=== PATIENT | male | born 1945 | race Caucasian/White ===

== ENCOUNTER → 2017-03-17 | Outpatient (REF) | payer BC ==
[~2017-03-17] MED LIST: ASPI325T PO; ATEN25TA PO; FISHCAP PO; LANO250T15 PO; LIPI10TA PO; MULTCAP PO; TYLE325T5 PO; VITA-182 PO; VITA500C24 PO
== END ==
LOC: M LABDRAW1 13:47
PROVIDERS: ATTEND Nurse Practitioner Family
DX: E29.1 Testicular hypofunction (principal)

== ENCOUNTER → 2017-03-19 | Outpatient (REF) | payer BC | LOC: M LAB REF 09:37 → M LABDRAW1 09:37 | PROVIDERS: ATTEND Urology | DX: E29.1 Testicular hypofunction (principal) ==

== ENCOUNTER → 2017-08-19 | Outpatient (REF) | payer BC | LOC: M LABDRAW1 09:54 | DX: N52.01 Erectile dysfunction due to arterial insufficiency (principal); E34.9 Endocrine disorder, unspecified | CPT/HCPCS: 84403 ==

== ENCOUNTER → 2017-08-21 | Outpatient (REF) | payer BC | LOC: M LABDRAW1 11:16 | DX: N52.01 Erectile dysfunction due to arterial insufficiency (principal) | CPT/HCPCS: 84403 ==

== ENCOUNTER → 2017-10-13 | Outpatient (REF) | payer BC ==
[2017-10-13 12:56] LABS: APPEARANCE, URINE CLEAR (CLEAR); BACTERIA, URINE AUTO NEGATIVE (NEGATIVE); BILIRUBIN, URINE AUTO NEGATIVE (NEGATIVE); BLOOD, URINE BLOOD NEGATIVE (NEGATIVE); COLOR, URINE AMBER (YELLOW); GLUCOSE, URINE (UA) AUTO NEGATIVE (NEGATIVE); KETONE, URINE AUTO TRACE mg/dL (NEGATIVE); LEUKOCYTE ESTERASE, URINE AUTO NEGATIVE (NEGATIVE); MUCUS, URINE SMALL (NEGATIVE); NITRITE, URINE AUTO NEGATIVE (NEGATIVE); PROTEIN, URINE AUTO NEGATIVE (NEGATIVE); RBC, URINE AUTO 1 /HPF (0-3); SPECIFIC GRAVITY URINE AUTO 1.024 (1.002-1.035); SQUAMOUS EPITHELIAL CELL UR AU 0 /HPF (0-6); WBC, URINE AUTO 1 /HPF (0-3)
[2017-10-13 12:57] LABS: BASO # 0.1 10^3/uL (0.0-0.2); BASO % 0.6 % (0.0-1.0); EOS # 0.2 10^3/uL (0.0-0.50); HEMOGLOBIN 16.4 g/dl (14.0-18.0); IMMATURE GRANULOCYTE % 1.2 % (0-3.0); LYMPH # 1.8 10^3/uL (1.5-4.5); MEAN CORPUSCULAR HEMOGLOBIN 28.9 pg (27.0-33.0); MEAN CORPUSCULAR HGB CONC 32.8 g/dl (32.0-36.5); MONO # 0.8 10^3/uL (0.0-0.8); MONO % 7.8 % (0.0-5.0); NEUTROPHILS # 7.5 10^3/uL (1.8-7.7); NEUTROPHILS % 71.4 % (36.0-66.0); PLATELET COUNT, AUTOMATED 331 10^3/uL (150-450); RED BLOOD COUNT 5.68 10^6/uL (4.30-6.10); RED CELL DISTRIBUTION WIDTH 15.3 % (11.5-14.5); WHITE BLOOD COUNT 10.5 10^3/uL (4.0-10.0)
[2017-10-13 13:01] LABS: PROTHROMBIN TIME 13.3 SECONDS (12.4-14.5)
[2017-10-13 13:02] LABS: PARTIAL THROMBOPLASTIN TIME 35.4 SECONDS (26.8-37.9)
[2017-10-13 13:10] LABS: TOTAL 25(OH) VITAMIN D 41.8 NG/ML (30.0-100.0)
[2017-10-13 13:17] LABS: ALBUMIN 3.6 GM/DL (3.2-5.2); ALBUMIN/GLOBULIN RATIO 1.03 (1.00-1.93); ALKALINE PHOSPHATASE 79 U/L (45-117); ALT/SGPT 50 U/L (12-78); ANION GAP 8 MEQ/L (8-16); AST/SGOT 18 U/L (7-37); BILIRUBIN,TOTAL 0.7 MG/DL (0.2-1.0); BLOOD UREA NITROGEN 17 MG/DL (7-18); C REACTIVE PROTEIN QUANTITATIV 2.38 MG/DL (0.00-0.30); CALCIUM LEVEL 9.2 MG/DL (8.8-10.2); CARBON DIOXIDE LEVEL 27 MEQ/L (21-32); CHLORIDE LEVEL 105 MEQ/L (98-107); CREATININE FOR GFR 0.81 MG/DL (0.70-1.30); GLOMERULAR FILTRATION RATE > 60.0 (>42); GLUCOSE, FASTING 107 MG/DL (70-100); IRON (FE) 98 UG/DL (65-175); POTASSIUM SERUM 4.2 MEQ/L (3.5-5.1); RHEUMATOID FACTOR QUANT < 10.0 IU/ML (0-15.0); SODIUM LEVEL 140 MEQ/L (136-145); TOTAL IRON BINDING CAPACITY 316 UG/DL (250-450); TOTAL PROTEIN 7.1 GM/DL (6.4-8.2)
[2017-10-13 13:49] LABS: ERYTHROCYTE SEDIMENTATION RATE 17 mm/hr (0-20)
[2017-10-14 10:41] LABS: HEPATITIS B SURFACE ANTIGEN NEGATIVE (NEGATIVE)
[2017-10-14 10:51] LABS: HEPATITIS C VIRUS ABY INDEX 0.1 INDEX (<0.8)
[2017-10-16 00:06] LABS: ANCA-ATYPICAL <1:20 titer (Neg:<1:20); ANTINUCLEAR ANTIBODIES DIRECT Negative (Negative); CYTOPLASMIC NEUTROP AB ANCA-C <1:20 titer (Neg:<1:20); Lyme Disease IgG/IgM Antibodie <0.91 ISR (0.00-0.90); Lyme Disease IgM Ab Quantitati <0.80 index (0.00-0.79); PERINUCLEAR AB ANCA-P <1:20 titer (Neg:<1:20); SJOGREN'S ANTI SS-A <0.2 AI (0.0-0.9); SJOGREN'S ANTI SS-B <0.2 AI (0.0-0.9)
== END ==
LOC: M LABDRAW1 10:06
DX: M35.9 Systemic involvement of connective tissue, unspecified (principal); Z79.899 Other long term (current) drug therapy; E55.9 Vitamin D deficiency, unspecified; E83.110 Hereditary hemochromatosis
CPT/HCPCS: 83550

== ENCOUNTER 2017-10-25 15:39 | Emergency (ER) | payer BC ==
[2017-10-25] MEDS: NS 1,000 ML IV (16:14)
[2017-10-25] MEDS ORDERED: DIGOXIN INJ 0.5 MG/2 ML AMP (J1160) IV (16:14)
[2017-10-25] MEDS: METOPROLOL 5 MG/5 ML VIAL IV ×4 (16:15→16:51)
[2017-10-25 16:20] LABS: BASO # 0.1 10^3/uL (0.0-0.2); BASO % 0.7 % (0.0-1.0); EOS # 0.1 10^3/uL (0.0-0.50); EOS % 0.9 % (0.0-3.0); HEMATOCRIT 53.5 % (42.0-52.0); HEMOGLOBIN 17.9 g/dl (14.0-18.0); IMMATURE GRANULOCYTE % 1.1 % (0-3.0); LYMPH # 2.3 10^3/uL (1.5-4.5); LYMPH % 20.3 % (24.0-44.0); MEAN CORPUSCULAR HEMOGLOBIN 29.6 pg (27.0-33.0); MEAN CORPUSCULAR HGB CONC 33.5 g/dl (32.0-36.5); MEAN CORPUSCULAR VOLUME 88.6 fl (80.0-96.0); MONO # 0.9 10^3/uL (0.0-0.8); MONO % 7.9 % (0.0-5.0); NEUTROPHILS # 7.9 10^3/uL (1.8-7.7); NEUTROPHILS % 69.1 % (36.0-66.0); PLATELET COUNT, AUTOMATED 211 10^3/uL (150-450); RED BLOOD COUNT 6.04 10^6/uL (4.30-6.10); WHITE BLOOD COUNT 11.5 10^3/uL (4.0-10.0)
[2017-10-25 16:24] LABS: INR 0.92; PROTHROMBIN TIME 12.4 SECONDS (12.4-14.5)
[2017-10-25 16:33] LABS: ANION GAP 7 MEQ/L (8-16); BLOOD UREA NITROGEN 18 MG/DL (7-18); CARBON DIOXIDE LEVEL 30 MEQ/L (21-32); CHLORIDE LEVEL 104 MEQ/L (98-107); CPK CREATINE PHOSPHOKINASE 146 U/L (39-308); CREATININE FOR GFR 1.01 MG/DL (0.70-1.30); GLOMERULAR FILTRATION RATE > 60.0 (>42); GLUCOSE, FASTING 135 MG/DL (70-100); POTASSIUM SERUM 3.5 MEQ/L (3.5-5.1); SODIUM LEVEL 141 MEQ/L (136-145); TROPONIN I < 0.02 NG/ML (< 0.10)
[2017-10-25 16:39] LABS: CK-MB VALUE MASS 2.5 NG/ML (0.0-3.6); MB/CK RELATIVE INDEX 1.71 (< OR =4)
[2017-10-25] MEDS: DIGOXIN INJ 0.5 MG/2 ML AMP (J1160) IV (16:52)
== END 2017-10-25 18:16 | disposition home or self-care (01) ==
LOC: M ED 15:39
DX: I48.91 Unspecified atrial fibrillation (principal); R00.0 Tachycardia, unspecified; I48.92 Unspecified atrial flutter; I51.9 Heart disease, unspecified; I10 Essential (primary) hypertension; E78.5 Hyperlipidemia, unspecified; Z87.891 Personal history of nicotine dependence; Z82.49 Family history of ischemic heart disease and other diseases of the circulatory system; Z79.82 Long term (current) use of aspirin; Z79.899 Other long term (current) drug therapy
CPT/HCPCS: J1160

== ENCOUNTER → 2017-10-26 | Outpatient (REF) | payer BC ==
[2017-10-28 10:15] LABS: QUANTIFERON GOLD TB Negative (Negative); TB Test (QFT) Antigen 0.01 IU/mL (.); TB Test (QFT) Mitogen 6.19 IU/mL (.); TB Test (QFT) Nil 0.01 IU/mL (.)
== END ==
LOC: M LABNEURO 13:01
DX: L40.59 Other psoriatic arthropathy (principal); K76.0 Fatty (change of) liver, not elsewhere classified; Z79.899 Other long term (current) drug therapy
CPT/HCPCS: 36415

== ENCOUNTER 2017-10-29 00:28 | Emergency (ER) | payer BC ==
[2017-10-29] MEDS: METOPROLOL 5 MG/5 ML VIAL IV ×3 (00:59→01:30)
[2017-10-29] MEDS: METOPROLOL TART 25 MG TABLET PO (00:59)
[2017-10-29 01:01] LABS: BASO # 0.1 10^3/uL (0.0-0.2); BASO % 0.6 % (0.0-1.0); EOS # 0.3 10^3/uL (0.0-0.50); EOS % 2.1 % (0.0-3.0); HEMOGLOBIN 17.4 g/dl (14.0-18.0); IMMATURE GRANULOCYTE % 0.5 % (0-3.0); LYMPH # 2.1 10^3/uL (1.5-4.5); LYMPH % 16.9 % (24.0-44.0); MEAN CORPUSCULAR HEMOGLOBIN 29.4 pg (27.0-33.0); MEAN CORPUSCULAR HGB CONC 34.1 g/dl (32.0-36.5); MEAN CORPUSCULAR VOLUME 86.3 fl (80.0-96.0); MONO # 1.4 10^3/uL (0.0-0.8); MONO % 10.8 % (0.0-5.0); NEUTROPHILS # 8.8 10^3/uL (1.8-7.7); NEUTROPHILS % 69.1 % (36.0-66.0); PLATELET COUNT, AUTOMATED 184 10^3/uL (150-450); RED BLOOD COUNT 5.91 10^6/uL (4.30-6.10); RED CELL DISTRIBUTION WIDTH 15.9 % (11.5-14.5); WHITE BLOOD COUNT 12.7 10^3/uL (4.0-10.0)
[2017-10-29 01:44] LABS: ANION GAP 12 MEQ/L (8-16); BLOOD UREA NITROGEN 20 MG/DL (7-18); CARBON DIOXIDE LEVEL 23 MEQ/L (21-32); CHLORIDE LEVEL 105 MEQ/L (98-107); CK-MB VALUE MASS 1.3 NG/ML (0.0-3.6); CPK CREATINE PHOSPHOKINASE 103 U/L (39-308); CREATININE FOR GFR 0.76 MG/DL (0.70-1.30); DIGOXIN LEVEL 0.7 NG/ML (0.5-2.0); FREE T4 0.96 NG/DL (0.76-1.46); GLOMERULAR FILTRATION RATE > 60.0 (>42); GLUCOSE, FASTING 109 MG/DL (70-100); MB/CK RELATIVE INDEX 1.26 (< OR =4); POTASSIUM SERUM 3.7 MEQ/L (3.5-5.1); SODIUM LEVEL 140 MEQ/L (136-145); TROPONIN I < 0.02 NG/ML (< 0.10)
[2017-10-29 05:11] LABS: CK-MB VALUE MASS 1.8 NG/ML (0.0-3.6); CPK CREATINE PHOSPHOKINASE 102 U/L (39-308); MB/CK RELATIVE INDEX 1.76 (< OR =4); TROPONIN I < 0.02 NG/ML (< 0.10)
== END 2017-10-29 06:25 | disposition home or self-care (01) ==
LOC: M ED 00:28
DX: I48.91 Unspecified atrial fibrillation (principal); N40.0 Benign prostatic hyperplasia without lower urinary tract symptoms; Z79.52 Long term (current) use of systemic steroids; Z79.899 Other long term (current) drug therapy; Z79.82 Long term (current) use of aspirin
CPT/HCPCS: 93005

== ENCOUNTER 2018-01-17 00:54 | Inpatient (IN) | payer MEDICARE, BC ==
[2018-01-17 01:23] LABS: BASO # 0.1 10^3/uL (0.0-0.2); BASO % 0.7 % (0.0-1.0); EOS # 0.2 10^3/uL (0.0-0.50); EOS % 1.7 % (0.0-3.0); HEMATOCRIT 46.4 % (42.0-52.0); HEMOGLOBIN 15.7 g/dl (13.5-17.5); IMMATURE GRANULOCYTE % 0.5 % (0-3.0); LYMPH # 2.5 10^3/uL (1.5-4.5); LYMPH % 22.6 % (24.0-44.0); MEAN CORPUSCULAR HEMOGLOBIN 28.7 pg (27.0-33.0); MEAN CORPUSCULAR HGB CONC 33.8 g/dl (32.0-36.5); MEAN CORPUSCULAR VOLUME 84.8 fl (80.0-96.0); MONO # 1.1 10^3/uL (0.0-0.8); MONO % 9.8 % (0.0-5.0); NEUTROPHILS # 7.2 10^3/uL (1.8-7.7); NEUTROPHILS % 64.7 % (36.0-66.0); PLATELET COUNT, AUTOMATED 315 10^3/uL (150-450); RED BLOOD COUNT 5.47 10^6/uL (4.30-6.10); RED CELL DISTRIBUTION WIDTH 13.2 % (11.5-14.5); WHITE BLOOD COUNT 11.2 10^3/uL (4.0-10.0)
[2018-01-17] MEDS: METOPROLOL 5 MG/5 ML VIAL IV ×4 (01:48→02:01)
[2018-01-17 01:50] LABS: ANION GAP 7 MEQ/L (8-16); BLOOD UREA NITROGEN 15 MG/DL (7-18); CALCIUM LEVEL 8.5 MG/DL (8.8-10.2); CARBON DIOXIDE LEVEL 26 MEQ/L (21-32); CHLORIDE LEVEL 106 MEQ/L (98-107); CK-MB VALUE MASS 1.1 NG/ML (<3.6); CPK CREATINE PHOSPHOKINASE 102 U/L (39-308); CREATININE FOR GFR 0.83 MG/DL (0.70-1.30); GLOMERULAR FILTRATION RATE > 60.0 (>42); GLUCOSE, FASTING 118 MG/DL (70-100); MB/CK RELATIVE INDEX 1.07 (< OR =4); POTASSIUM SERUM 3.9 MEQ/L (3.5-5.1); SODIUM LEVEL 139 MEQ/L (136-145); TROPONIN I < 0.02 NG/ML (< 0.10)
[2018-01-17 02:16] LABS: DIGOXIN LEVEL 0.8 NG/ML (0.5-2.0); MAGNESIUM LEVEL 2.2 MG/DL (1.8-2.4)
[2018-01-17] MEDS: FLECAINIDE 50MG TABLET PO ×3 (03:29→21:07)
[2018-01-17 07:12] LABS: CK-MB VALUE MASS < 1.0 NG/ML (<3.6); CPK CREATINE PHOSPHOKINASE 96 U/L (39-308); MB/CK RELATIVE INDEX 1.04 (< OR =4); TROPONIN I < 0.02 NG/ML (< 0.10)
[2018-01-17] MEDS: CARVedilol 12.5 MG TAB PO ×3 (07:15→21:08)
[2018-01-17] MEDS: APIXABAN 5 MG TAB (ELIQUIS) PO ×2 (07:15→21:07)
[2018-01-17] MEDS: DIGOXIN 0.25 MG TAB PO (07:15)
[2018-01-17] MEDS ORDERED: BISACODYL 5 MG TAB PO (12:00)
[2018-01-17] MEDS: MULTIVITAMINS/MINERALS THERAP 1 TAB PO (13:13)
[2018-01-17] MEDS: FOLIC ACID 1 MG TAB PO (13:13)
[2018-01-17] MEDS: VITAMIN D 1,000 INTERNATIONAL UNITS TABLET PO (13:13)
[2018-01-17] MEDS: ASCORBIC ACID 500 MG TAB PO (13:14)
[2018-01-17] MEDS: SPIRONOLACTONE 12.5MG PER 1/2 TABLET PO (14:25)
[2018-01-17] MEDS ORDERED: AMIODARONE 150MG/3ML INJ (J0282) IVP (18:12)
[2018-01-17] MEDS: AMIODARONE HCL 150 MG in APPROPRIATE DILUENT 1 EA IV (19:53)
[2018-01-17] MEDS ORDERED: FLECAINIDE 50MG TABLET PO (21:00)
[2018-01-17] MEDS ORDERED: CARVedilol 12.5 MG TAB PO (21:00)
[2018-01-17] MEDS: ATORVASTATIN 20 MG TAB PO (21:08)
[2018-01-18 04:33] LABS: HEMATOCRIT 47.6 % (42.0-52.0); MEAN CORPUSCULAR HGB CONC 33.6 g/dl (32.0-36.5); MEAN CORPUSCULAR VOLUME 86.4 fl (80.0-96.0); PLATELET COUNT, AUTOMATED 305 10^3/uL (150-450); RED BLOOD COUNT 5.51 10^6/uL (4.30-6.10); RED CELL DISTRIBUTION WIDTH 13.4 % (11.5-14.5)
[2018-01-18 05:05] LABS: ANION GAP 7 MEQ/L (8-16); BLOOD UREA NITROGEN 12 MG/DL (7-18); CALCIUM LEVEL 8.4 MG/DL (8.8-10.2); CARBON DIOXIDE LEVEL 28 MEQ/L (21-32); CHLORIDE LEVEL 104 MEQ/L (98-107); GLOMERULAR FILTRATION RATE > 60.0 (>42); GLUCOSE, FASTING 154 MG/DL (70-100); NT-PRO BNP 2009 PG/ML (<125); POTASSIUM SERUM 4.1 MEQ/L (3.5-5.1); SODIUM LEVEL 139 MEQ/L (136-145)
[2018-01-18] MEDS: CARVedilol 12.5 MG TAB PO ×3 (08:53→20:36)
[2018-01-18] MEDS: FLECAINIDE 50MG TABLET PO ×3 (08:53→20:36)
[2018-01-18] MEDS: VITAMIN D 1,000 INTERNATIONAL UNITS TABLET PO (08:54)
[2018-01-18] MEDS: MULTIVITAMINS/MINERALS THERAP 1 TAB PO (08:54)
[2018-01-18] MEDS: ASCORBIC ACID 500 MG TAB PO (08:54)
[2018-01-18] MEDS: FOLIC ACID 1 MG TAB PO (08:54)
[2018-01-18] MEDS: APIXABAN 5 MG TAB (ELIQUIS) PO ×2 (08:54→20:37)
[2018-01-18] MEDS: SPIRONOLACTONE 12.5MG PER 1/2 TABLET PO (08:54)
[2018-01-18] MEDS ORDERED: DIGOXIN 0.25 MG TAB PO (09:00)
[2018-01-18] MEDS ORDERED: SLF 3 ML SYR IV (11:00)
[2018-01-18] MEDS ORDERED: ISOVUE-370 76% 100ML VIAL (Q9967) As Ordered (11:59)
[2018-01-18] MEDS: FUROSEMIDE 20 MG/2 ML VIAL (J1940) IV (12:50)
[2018-01-18] MEDS: AMIODARONE HCL 150 MG in APPROPRIATE DILUENT 1 EA IV ×2 (12:50→21:38)
[2018-01-18] MEDS: SLF 3 ML SYR IV ×2 (12:51→20:37)
[2018-01-18 15:10] LABS: BEDSIDE GLUCOSE 151 MG/DL (83-110)
[2018-01-18] MEDS: ATORVASTATIN 20 MG TAB PO (20:36)
[2018-01-19] MEDS: AMIODARONE HCL 150 MG in APPROPRIATE DILUENT 1 EA IV (05:58)
[2018-01-19] MEDS: SLF 3 ML SYR IV ×3 (05:58→20:55)
[2018-01-19] MEDS: VITAMIN D 1,000 INTERNATIONAL UNITS TABLET PO (08:33)
[2018-01-19] MEDS: FOLIC ACID 1 MG TAB PO (08:33)
[2018-01-19] MEDS: SPIRONOLACTONE 12.5MG PER 1/2 TABLET PO (08:33)
[2018-01-19] MEDS: ASCORBIC ACID 500 MG TAB PO (08:33)
[2018-01-19] MEDS: APIXABAN 5 MG TAB (ELIQUIS) PO ×2 (08:34→20:53)
[2018-01-19] MEDS: MULTIVITAMINS/MINERALS THERAP 1 TAB PO (08:34)
[2018-01-19] MEDS: CARVedilol 12.5 MG TAB PO (08:34)
[2018-01-19] MEDS: METOPROLOL 5 MG/5 ML VIAL IV ×2 (17:30→18:06)
[2018-01-19] MEDS: ATENOLOL 50 MG TAB PO (20:53)
[2018-01-19] MEDS: FLECAINIDE 50MG TABLET PO (20:53)
[2018-01-19] MEDS: ATORVASTATIN 20 MG TAB PO (20:55)
[2018-01-20] MEDS: SLF 3 ML SYR IV ×3 (05:09→22:00)
[2018-01-20 05:39] LABS: HEMATOCRIT 50.7 % (42.0-52.0); HEMOGLOBIN 16.8 g/dl (13.5-17.5); MEAN CORPUSCULAR HEMOGLOBIN 28.8 pg (27.0-33.0); MEAN CORPUSCULAR HGB CONC 33.1 g/dl (32.0-36.5); MEAN CORPUSCULAR VOLUME 86.8 fl (80.0-96.0); PLATELET COUNT, AUTOMATED 329 10^3/uL (150-450); RED BLOOD COUNT 5.84 10^6/uL (4.30-6.10); RED CELL DISTRIBUTION WIDTH 13.5 % (11.5-14.5); WHITE BLOOD COUNT 13.9 10^3/uL (4.0-10.0)
[2018-01-20 05:57] LABS: ANION GAP 6 MEQ/L (8-16); BLOOD UREA NITROGEN 14 MG/DL (7-18); CALCIUM LEVEL 8.7 MG/DL (8.8-10.2); CARBON DIOXIDE LEVEL 29 MEQ/L (21-32); CHLORIDE LEVEL 102 MEQ/L (98-107); CREATININE FOR GFR 1.16 MG/DL (0.70-1.30); GLOMERULAR FILTRATION RATE > 60.0 (>42); GLUCOSE, FASTING 114 MG/DL (70-100); POTASSIUM SERUM 4.4 MEQ/L (3.5-5.1); SODIUM LEVEL 137 MEQ/L (136-145)
[2018-01-20] MEDS: SPIRONOLACTONE 12.5MG PER 1/2 TABLET PO (09:24)
[2018-01-20] MEDS: VITAMIN D 1,000 INTERNATIONAL UNITS TABLET PO (09:25)
[2018-01-20] MEDS: APIXABAN 5 MG TAB (ELIQUIS) PO ×2 (09:25→22:01)
[2018-01-20] MEDS: MULTIVITAMINS/MINERALS THERAP 1 TAB PO (09:25)
[2018-01-20] MEDS: FOLIC ACID 1 MG TAB PO (09:25)
[2018-01-20] MEDS: ASCORBIC ACID 500 MG TAB PO (09:25)
[2018-01-20] MEDS: FLECAINIDE 50MG TABLET PO (09:27)
[2018-01-20] MEDS: ATENOLOL 50 MG TAB PO ×2 (09:27→22:00)
[2018-01-20] MEDS ORDERED: PROPOFOL 200 MG/20 ML VIAL As Ordered (13:00)
[2018-01-20] MEDS: ANALGESIC BALM CRM 120 GM TOP ×3 (13:00→22:01)
[2018-01-20] MEDS: ATORVASTATIN 20 MG TAB PO (22:00)
[2018-01-20] MEDS: ACETAMINOPHEN TAB 650MG DOSE (2X325MG) PO (23:58)
[2018-01-21] MEDS: SLF 3 ML SYR IV (05:06)
[2018-01-21 05:16] LABS: HEMATOCRIT 47.3 % (42.0-52.0); HEMOGLOBIN 15.7 g/dl (13.5-17.5); MEAN CORPUSCULAR HEMOGLOBIN 28.8 pg (27.0-33.0); MEAN CORPUSCULAR HGB CONC 33.2 g/dl (32.0-36.5); MEAN CORPUSCULAR VOLUME 86.8 fl (80.0-96.0); PLATELET COUNT, AUTOMATED 309 10^3/uL (150-450); RED BLOOD COUNT 5.45 10^6/uL (4.30-6.10); RED CELL DISTRIBUTION WIDTH 13.6 % (11.5-14.5); WHITE BLOOD COUNT 11.4 10^3/uL (4.0-10.0)
[2018-01-21 05:27] LABS: ANION GAP 6 MEQ/L (8-16); BLOOD UREA NITROGEN 17 MG/DL (7-18); CALCIUM LEVEL 8.5 MG/DL (8.8-10.2); CARBON DIOXIDE LEVEL 29 MEQ/L (21-32); CHLORIDE LEVEL 103 MEQ/L (98-107); CREATININE FOR GFR 1.02 MG/DL (0.70-1.30); GLOMERULAR FILTRATION RATE > 60.0 (>42); GLUCOSE, FASTING 114 MG/DL (70-100); POTASSIUM SERUM 4.2 MEQ/L (3.5-5.1); SODIUM LEVEL 138 MEQ/L (136-145)
[2018-01-21] MEDS ORDERED: FLECAINIDE 50MG TABLET PO (09:00)
[2018-01-21] MEDS: VITAMIN D 1,000 INTERNATIONAL UNITS TABLET PO (09:27)
[2018-01-21] MEDS: FLECAINIDE 50MG TABLET PO (09:27)
[2018-01-21] MEDS: SPIRONOLACTONE 12.5MG PER 1/2 TABLET PO (09:27)
[2018-01-21] MEDS: FOLIC ACID 1 MG TAB PO (09:27)
[2018-01-21] MEDS: ATENOLOL 50 MG TAB PO (09:28)
[2018-01-21] MEDS: ANALGESIC BALM CRM 120 GM TOP (09:28)
[2018-01-21] MEDS: APIXABAN 5 MG TAB (ELIQUIS) PO (09:28)
[2018-01-21] MEDS: MULTIVITAMINS/MINERALS THERAP 1 TAB PO (09:28)
[2018-01-21] MEDS: ASCORBIC ACID 500 MG TAB PO (09:28)
[2018-01-21 10:19] LABS: ALBUMIN 2.9 GM/DL (3.2-5.2); ALBUMIN/GLOBULIN RATIO 0.69 (1.00-1.93); ALKALINE PHOSPHATASE 82 U/L (45-117); ALT/SGPT 32 U/L (12-78); AST/SGOT 16 U/L (7-37); BILIRUBIN,DIRECT 0.2 MG/DL (0.0-0.2); BILIRUBIN,TOTAL 0.8 MG/DL (0.2-1.0); C REACTIVE PROTEIN QUANTITATIV 6.35 MG/DL (0.00-0.30); TOTAL PROTEIN 7.1 GM/DL (6.4-8.2)
[2018-01-21 12:17] LABS: ERYTHROCYTE SEDIMENTATION RATE 23 mm/hr (0-20)
== END 2018-01-21 11:08 | disposition home or self-care (01) | DRG 310 ==
LOC: M ED 00:54 → M ED INP 10:38 → M MSPAV 12:44 → M PCU 19:42
PROC: 5A2204Z Restoration of Cardiac Rhythm, Single (ICD-10-PCS; principal; 2018-01-21)
DX: I48.0 Paroxysmal atrial fibrillation (principal); E78.5 Hyperlipidemia, unspecified; N52.9 Male erectile dysfunction, unspecified; M35.3 Polymyalgia rheumatica; K64.8 Other hemorrhoids; I10 Essential (primary) hypertension; I35.0 Nonrheumatic aortic (valve) stenosis; I44.0 Atrioventricular block, first degree; Z79.01 Long term (current) use of anticoagulants; Z79.899 Other long term (current) drug therapy; Z87.891 Personal history of nicotine dependence

== ENCOUNTER → 2018-02-22 | Outpatient (REF) | payer MEDICARE, BC ==
[2018-02-22 11:42] LABS: BASO # 0.1 10^3/uL (0.0-0.2); BASO % 0.8 % (0.0-1.0); EOS # 0.1 10^3/uL (0.0-0.50); HEMATOCRIT 44.2 % (42.0-52.0); HEMOGLOBIN 14.4 g/dl (13.5-17.5); IMMATURE GRANULOCYTE # 0.3 10^3/uL (0-0); IMMATURE GRANULOCYTE % 2.1 % (0-3.0); LYMPH # 1.9 10^3/uL (1.5-4.5); LYMPH % 15.5 % (24.0-44.0); MEAN CORPUSCULAR HEMOGLOBIN 28.2 pg (27.0-33.0); MEAN CORPUSCULAR HGB CONC 32.6 g/dl (32.0-36.5); MEAN CORPUSCULAR VOLUME 86.7 fl (80.0-96.0); MONO # 1.2 10^3/uL (0.0-0.8); MONO % 9.9 % (0.0-5.0); NEUTROPHILS # 8.8 10^3/uL (1.8-7.7); NEUTROPHILS % 70.7 % (36.0-66.0); PLATELET COUNT, AUTOMATED 317 10^3/uL (150-450); RED CELL DISTRIBUTION WIDTH 14.6 % (11.5-14.5); WHITE BLOOD COUNT 12.4 10^3/uL (4.0-10.0)
[2018-02-22 12:03] LABS: ALBUMIN/GLOBULIN RATIO 0.83 (1.00-1.93); ALKALINE PHOSPHATASE 79 U/L (45-117); ALT/SGPT 42 U/L (12-78); ANION GAP 9 MEQ/L (8-16); AST/SGOT 14 U/L (7-37); BILIRUBIN,TOTAL 0.5 MG/DL (0.2-1.0); BLOOD UREA NITROGEN 16 MG/DL (7-18); C REACTIVE PROTEIN QUANTITATIV 4.53 MG/DL (0.00-0.30); CALCIUM LEVEL 8.3 MG/DL (8.8-10.2); CARBON DIOXIDE LEVEL 28 MEQ/L (21-32); CHLORIDE LEVEL 104 MEQ/L (98-107); GLOMERULAR FILTRATION RATE > 60.0 (>42); GLUCOSE, FASTING 112 MG/DL (70-100); POTASSIUM SERUM 4.2 MEQ/L (3.5-5.1); SODIUM LEVEL 141 MEQ/L (136-145); TOTAL PROTEIN 6.6 GM/DL (6.4-8.2)
[2018-02-22 12:34] LABS: ERYTHROCYTE SEDIMENTATION RATE 25 mm/hr (0-20)
== END ==
LOC: M LABDRAW1 08:16
DX: M35.3 Polymyalgia rheumatica (principal)

== ENCOUNTER → 2018-02-22 | Outpatient (REF) | payer MEDICARE, BC ==
[2018-02-22 11:42] LABS: HEMATOCRIT 44.1 % (42.0-52.0)
[2018-02-22 13:08] LABS: TESTOSTERONE 298 NG/DL (241-827)
[2018-02-22 14:59] LABS: PSA SCREENING 1.06 NG/ML (< 4.0)
== END ==
LOC: M LABDRAW1 08:13
DX: N40.0 Benign prostatic hyperplasia without lower urinary tract symptoms (principal); E34.9 Endocrine disorder, unspecified; M35.3 Polymyalgia rheumatica
CPT/HCPCS: 84403

== ENCOUNTER → 2018-02-23 | Outpatient (REF) | payer MEDICARE, BC ==
[2018-02-23 12:18] LABS: TESTOSTERONE 676 NG/DL (241-827)
== END ==
LOC: M LABDRAW1 07:45
DX: E34.9 Endocrine disorder, unspecified (principal); N40.1 Benign prostatic hyperplasia with lower urinary tract symptoms
CPT/HCPCS: 84403

== ENCOUNTER → 2018-03-05 | Outpatient (REF) | payer BC, MEDICARE ==
[2018-03-05 16:44] LABS: BASO # 0.1 10^3/uL (0.0-0.2); BASO % 0.6 % (0.0-1.0); EOS # 0.1 10^3/uL (0.0-0.50); EOS % 1.2 % (0.0-3.0); HEMATOCRIT 47.2 % (42.0-52.0); HEMOGLOBIN 15.4 g/dl (13.5-17.5); IMMATURE GRANULOCYTE # 0.3 10^3/uL (0-0); IMMATURE GRANULOCYTE % 2.5 % (0-3.0); LYMPH % 8.3 % (24.0-44.0); MEAN CORPUSCULAR HEMOGLOBIN 28.1 pg (27.0-33.0); MEAN CORPUSCULAR HGB CONC 32.6 g/dl (32.0-36.5); MONO # 0.4 10^3/uL (0.0-0.8); MONO % 3.6 % (0.0-5.0); NEUTROPHILS # 10.2 10^3/uL (1.8-7.7); NEUTROPHILS % 83.8 % (36.0-66.0); PLATELET COUNT, AUTOMATED 305 10^3/uL (150-450); RED BLOOD COUNT 5.49 10^6/uL (4.30-6.10); RED CELL DISTRIBUTION WIDTH 15.4 % (11.5-14.5); WHITE BLOOD COUNT 12.2 10^3/uL (4.0-10.0)
[2018-03-05 16:50] LABS: ALBUMIN 3.1 GM/DL (3.2-5.2); ALBUMIN/GLOBULIN RATIO 0.76 (1.00-1.93); ALKALINE PHOSPHATASE 92 U/L (45-117); ALT/SGPT 38 U/L (12-78); ANION GAP 7 MEQ/L (8-16); AST/SGOT 13 U/L (7-37); BILIRUBIN,TOTAL 0.9 MG/DL (0.2-1.0); BLOOD UREA NITROGEN 18 MG/DL (7-18); C REACTIVE PROTEIN QUANTITATIV 8.51 MG/DL (0.00-0.30); CALCIUM LEVEL 8.3 MG/DL (8.8-10.2); CARBON DIOXIDE LEVEL 29 MEQ/L (21-32); CHLORIDE LEVEL 100 MEQ/L (98-107); CREATININE FOR GFR 0.98 MG/DL (0.70-1.30); GLOMERULAR FILTRATION RATE > 60.0 (>42); GLUCOSE, FASTING 178 MG/DL (70-100); POTASSIUM SERUM 4.1 MEQ/L (3.5-5.1); SODIUM LEVEL 136 MEQ/L (136-145); TOTAL PROTEIN 7.2 GM/DL (6.4-8.2)
== END ==
LOC: M LABDRAW1 15:48
DX: M35.3 Polymyalgia rheumatica (principal)
CPT/HCPCS: 80053

== ENCOUNTER 2018-03-12 05:43 | Day surgery (SDC) | payer BC ==
[2018-03-12] MEDS ORDERED: dexameTHASONE 10 MG/1 ML VIAL PRES.FREE (J1100) (05:44)
[2018-03-12] MEDS ORDERED: ROPIvacaine 0.5% 30 ML INJECTION (J2795 PER 1MG) (05:44)
[2018-03-12] MEDS: LR 1,000 ML IV (06:34)
[2018-03-12] MEDS ORDERED: MIDAZOLAM INJ 2 MG/2 ML VIAL (J2250) As Ordered ×2 (06:46→07:20)
[2018-03-12] MEDS ORDERED: fentaNYL 100 MCG/2 ML INJECTION (J3010) As Ordered (06:46)
[2018-03-12] MEDS: fentaNYL 100 MCG/2 ML INJECTION (J3010) IV (07:05)
[2018-03-12] MEDS: MIDAZOLAM INJ 2 MG/2 ML VIAL (J2250) IV (07:05)
[2018-03-12] MEDS ORDERED: PROPOFOL 200 MG/20 ML VIAL As Ordered (07:19)
[2018-03-12] MEDS ORDERED: LIDOCAINE 2% INJ 100 MG/5 ML SDV (FOR ANES.) As Ordered (07:19)
[2018-03-12] MEDS ORDERED: ROCURONIUM BROMIDE 50 MG/5 ML VIAL As Ordered (07:19)
[2018-03-12] MEDS ORDERED: fentaNYL 250 MCG/5 ML INJECTION (J3010) As Ordered (07:20)
[2018-03-12] MEDS: EPINEPHrine INJ 1 MG/ML 1ML AMP As Ordered ×2 (08:14→09:22)
[2018-03-12] MEDS ORDERED: ePHEDrine SULFATE 25 MG/5 ML(5MG/ML) SYRINGE As Ordered (08:54)
[2018-03-12] MEDS ORDERED: ONDANSETRON 4MG/2ML VIAL (J2405) As Ordered (08:55)
[2018-03-12] MEDS ORDERED: METOCLOPRAMIDE INJ 10MG/2ML VIAL (J2765) As Ordered (08:55)
[2018-03-12] MEDS ORDERED: NEOSTIGMINE 10 MG/10 ML VIAL (J2710) As Ordered (08:55)
[2018-03-12] MEDS ORDERED: dexameTHASONE 4 MG/ML 1ML VIAL (J1100) As Ordered ×2 (08:55)
[2018-03-12] MEDS ORDERED: GLYCOPYRROLATE INJ 0.2 MG/ML 2 ML VIAL As Ordered (08:55)
[2018-03-12] MEDS ORDERED: KETOROLAC 60 MG/2 ML VIAL (J1885) As Ordered (08:55)
[2018-03-12] MEDS: LIDOCAINE 1% MDV 20ML VIAL As Ordered (09:08)
[2018-03-12] MEDS ORDERED: fentaNYL 100 MCG/2 ML INJECTION (J3010) IV (11:30)
[2018-03-12] MEDS ORDERED: MEPERIDINE INJ 25 MG/ML VIAL (J2175) IV (11:30)
[2018-03-12] MEDS ORDERED: LR 1,000 ML IV ×2 (11:30)
[2018-03-12] MEDS ORDERED: diphenhydrAMINE INJ 50MG/ML VIAL (J1200) IV (11:30)
[2018-03-12] MEDS: ONDANSETRON 4MG/2ML VIAL (J2405) IV (11:37)
[2018-03-12] MEDS ORDERED: PROMETHAZINE INJ 25 MG/ML VIAL (J2550) As Ordered (11:55)
[2018-03-12] MEDS: PROMETHAZINE INJ 25 MG/ML VIAL (J2550) IV ×2 (12:04→12:18)
== END 2018-03-12 14:35 | disposition home or self-care (01) ==
LOC: M SDC 05:43
DX: M75.111 Incomplete rotator cuff tear or rupture of right shoulder, not specified as traumatic (principal); M19.011 Primary osteoarthritis, right shoulder; M75.21 Bicipital tendinitis, right shoulder; M65.811 Other synovitis and tenosynovitis, right shoulder; M75.41 Impingement syndrome of right shoulder; I44.0 Atrioventricular block, first degree; I11.9 Hypertensive heart disease without heart failure; G47.30 Sleep apnea, unspecified; E78.2 Mixed hyperlipidemia; E78.00 Pure hypercholesterolemia, unspecified; I48.0 Paroxysmal atrial fibrillation; I35.9 Nonrheumatic aortic valve disorder, unspecified; R42 Dizziness and giddiness; K21.9 Gastro-esophageal reflux disease without esophagitis; Z79.82 Long term (current) use of aspirin; Z79.02 Long term (current) use of antithrombotics/antiplatelets; Z79.899 Other long term (current) drug therapy; Z87.891 Personal history of nicotine dependence; E66.3 Overweight
CPT/HCPCS: 29823

== ENCOUNTER → 2018-03-26 | Outpatient (REF) | payer BC ==
[2018-03-26 13:51] LABS: BASO # 0.2 10^3/uL (0.0-0.2); EOS # 0.2 10^3/uL (0.0-0.50); EOS % 1.2 % (0.0-3.0); HEMOGLOBIN 14.4 g/dl (13.5-17.5); IMMATURE GRANULOCYTE # 0.4 10^3/uL (0-0); IMMATURE GRANULOCYTE % 2.8 % (0-3.0); LYMPH # 2.2 10^3/uL (1.5-4.5); LYMPH % 14.3 % (24.0-44.0); MEAN CORPUSCULAR HEMOGLOBIN 27.6 pg (27.0-33.0); MEAN CORPUSCULAR VOLUME 86.2 fl (80.0-96.0); MONO # 1.2 10^3/uL (0.0-0.8); MONO % 7.8 % (0.0-5.0); NEUTROPHILS % 72.9 % (36.0-66.0); PLATELET COUNT, AUTOMATED 340 10^3/uL (150-450); RED BLOOD COUNT 5.22 10^6/uL (4.30-6.10); RED CELL DISTRIBUTION WIDTH 17.7 % (11.5-14.5); WHITE BLOOD COUNT 15.1 10^3/uL (4.0-10.0)
[2018-03-26 14:15] LABS: ALBUMIN 3.2 GM/DL (3.2-5.2); ALBUMIN/GLOBULIN RATIO 0.82 (1.00-1.93); ALKALINE PHOSPHATASE 88 U/L (45-117); ALT/SGPT 48 U/L (12-78); ANION GAP 8 MEQ/L (8-16); AST/SGOT 22 U/L (7-37); BILIRUBIN,TOTAL 0.4 MG/DL (0.2-1.0); BLOOD UREA NITROGEN 16 MG/DL (7-18); C REACTIVE PROTEIN QUANTITATIV 1.27 MG/DL (0.00-0.30); CALCIUM LEVEL 8.8 MG/DL (8.8-10.2); CARBON DIOXIDE LEVEL 26 MEQ/L (21-32); CHLORIDE LEVEL 105 MEQ/L (98-107); CREATININE FOR GFR 0.81 MG/DL (0.70-1.30); GLOMERULAR FILTRATION RATE > 60.0 (>42); GLUCOSE, FASTING 105 MG/DL (70-100); POTASSIUM SERUM 4.4 MEQ/L (3.5-5.1); SODIUM LEVEL 139 MEQ/L (136-145); TOTAL PROTEIN 7.1 GM/DL (6.4-8.2)
[2018-03-26 14:42] LABS: ERYTHROCYTE SEDIMENTATION RATE 28 mm/hr (0-20)
== END ==
LOC: M LABNEURO 10:01
DX: M35.3 Polymyalgia rheumatica (principal)
CPT/HCPCS: 80053

== ENCOUNTER → 2018-05-14 | Outpatient (REF) | payer BC ==
[2018-05-14 16:42] LABS: THYROID STIMULATING HORMONE 0.939 uIU/ML (0.358-3.740)
[2018-05-14 16:42] LABS: FOLATE > 24.0 NG/ML (>5.4)
[2018-05-19 14:20] LABS: VITAMIN B1 LEVEL WHOLE BLOOD 132.9 nmol/L (66.5-200.0); VITAMIN B6,PYRIDOXAL PHOSPHATE 42.4 ug/L (5.3-46.7); VITAMIN E(GAMMA TOCOPHEROL) 0.9 mg/L (0.5-4.9)
== END ==
LOC: M LABDRAW1 14:32
DX: R25.1 Tremor, unspecified (principal)
CPT/HCPCS: 82746

== ENCOUNTER → 2018-05-20 | Outpatient (REF) | payer BC ==
[2018-05-20 12:54] LABS: BASO # 0.1 10^3/uL (0.0-0.2); BASO % 0.5 % (0.0-1.0); EOS # 0.3 10^3/uL (0.0-0.50); EOS % 2.4 % (0.0-3.0); HEMATOCRIT 47.5 % (42.0-52.0); HEMOGLOBIN 15.4 g/dl (13.5-17.5); IMMATURE GRANULOCYTE # 0.1 10^3/uL (0-0); LYMPH # 1.3 10^3/uL (1.5-4.5); LYMPH % 11.5 % (24.0-44.0); MEAN CORPUSCULAR HEMOGLOBIN 28.4 pg (27.0-33.0); MEAN CORPUSCULAR HGB CONC 32.4 g/dl (32.0-36.5); MEAN CORPUSCULAR VOLUME 87.6 fl (80.0-96.0); MONO # 1.1 10^3/uL (0.0-0.8); MONO % 9.2 % (0.0-5.0); NEUTROPHILS # 8.6 10^3/uL (1.8-7.7); NEUTROPHILS % 75.4 % (36.0-66.0); PLATELET COUNT, AUTOMATED 271 10^3/uL (150-450); RED BLOOD COUNT 5.42 10^6/uL (4.30-6.10); WHITE BLOOD COUNT 11.4 10^3/uL (4.0-10.0)
[2018-05-20 13:11] LABS: ALBUMIN 3.4 GM/DL (3.2-5.2); ALBUMIN/GLOBULIN RATIO 0.87 (1.00-1.93); ALKALINE PHOSPHATASE 94 U/L (45-117); ALT/SGPT 22 U/L (12-78); ANION GAP 9 MEQ/L (8-16); AST/SGOT 13 U/L (7-37); BILIRUBIN,TOTAL 0.8 MG/DL (0.2-1.0); BLOOD UREA NITROGEN 10 MG/DL (7-18); C REACTIVE PROTEIN QUANTITATIV 3.17 MG/DL (0.00-0.30); CALCIUM LEVEL 8.1 MG/DL (8.8-10.2); CARBON DIOXIDE LEVEL 26 MEQ/L (21-32); CHLORIDE LEVEL 102 MEQ/L (98-107); CREATININE FOR GFR 0.89 MG/DL (0.70-1.30); GLOMERULAR FILTRATION RATE > 60.0 (>42); GLUCOSE, FASTING 123 MG/DL (70-100); POTASSIUM SERUM 4.1 MEQ/L (3.5-5.1); SODIUM LEVEL 137 MEQ/L (136-145); TOTAL PROTEIN 7.3 GM/DL (6.4-8.2)
== END ==
LOC: M LABDRAW1 12:02
DX: M35.3 Polymyalgia rheumatica (principal)
CPT/HCPCS: 80053

== ENCOUNTER → 2018-06-10 | Outpatient (REF) | payer BC ==
[2018-06-10 13:18] LABS: HEMATOCRIT 49.4 % (42.0-52.0)
[2018-06-10 13:28] LABS: PROSTATIC SPECIFIC AG MONITOR 1.15 NG/ML (< 4.0)
[2018-06-10 13:35] LABS: TESTOSTERONE 631 NG/DL (241-827)
== END ==
LOC: M LABDRAW1 12:28
DX: R79.89 Other specified abnormal findings of blood chemistry (principal); N52.01 Erectile dysfunction due to arterial insufficiency; N40.0 Benign prostatic hyperplasia without lower urinary tract symptoms
CPT/HCPCS: 84403

== ENCOUNTER → 2018-06-11 | Outpatient (REF) | payer BC ==
[2018-06-11 13:26] LABS: TESTOSTERONE 608 NG/DL (241-827)
== END ==
LOC: M LABDRAW1 12:32
DX: R79.89 Other specified abnormal findings of blood chemistry (principal); N52.01 Erectile dysfunction due to arterial insufficiency
CPT/HCPCS: 84403

== ENCOUNTER → 2018-06-22 | Outpatient (REF) | payer BC ==
[2018-06-22 15:51] LABS: BASO # 0.1 10^3/uL (0.0-0.2); EOS # 0.3 10^3/uL (0.0-0.50); EOS % 3.1 % (0.0-3.0); HEMATOCRIT 45.8 % (42.0-52.0); HEMOGLOBIN 14.9 g/dl (13.5-17.5); IMMATURE GRANULOCYTE # 0.1 10^3/uL (0-0); IMMATURE GRANULOCYTE % 1.6 % (0-3.0); LYMPH # 1.7 10^3/uL (1.5-4.5); LYMPH % 19.7 % (24.0-44.0); MEAN CORPUSCULAR HEMOGLOBIN 28.8 pg (27.0-33.0); MEAN CORPUSCULAR HGB CONC 32.5 g/dl (32.0-36.5); MEAN CORPUSCULAR VOLUME 88.4 fl (80.0-96.0); MONO # 0.9 10^3/uL (0.0-0.8); NEUTROPHILS # 5.7 10^3/uL (1.8-7.7); NEUTROPHILS % 64.6 % (36.0-66.0); PLATELET COUNT, AUTOMATED 272 10^3/uL (150-450); RED BLOOD COUNT 5.18 10^6/uL (4.30-6.10); RED CELL DISTRIBUTION WIDTH 16.9 % (11.5-14.5); WHITE BLOOD COUNT 8.8 10^3/uL (4.0-10.0)
[2018-06-22 16:28] LABS: ALBUMIN 3.4 GM/DL (3.2-5.2); ALBUMIN/GLOBULIN RATIO 1.06 (1.00-1.93); ALKALINE PHOSPHATASE 89 U/L (45-117); ALT/SGPT 22 U/L (12-78); ANION GAP 7 MEQ/L (8-16); AST/SGOT 10 U/L (7-37); BILIRUBIN,TOTAL 0.4 MG/DL (0.2-1.0); BLOOD UREA NITROGEN 14 MG/DL (7-18); CALCIUM LEVEL 8.6 MG/DL (8.8-10.2); CARBON DIOXIDE LEVEL 29 MEQ/L (21-32); CHLORIDE LEVEL 102 MEQ/L (98-107); CREATININE FOR GFR 0.89 MG/DL (0.70-1.30); GLOMERULAR FILTRATION RATE > 60.0 (>42); GLUCOSE, FASTING 120 MG/DL (70-100); POTASSIUM SERUM 4.2 MEQ/L (3.5-5.1); SODIUM LEVEL 138 MEQ/L (136-145); TOTAL PROTEIN 6.6 GM/DL (6.4-8.2)
== END ==
LOC: M LABDRAW1 15:42
DX: M35.3 Polymyalgia rheumatica (principal)

== ENCOUNTER → 2018-06-25 | Outpatient (REF) | payer BC ==
[2018-06-28 00:07] LABS: QuantiFERON-TB Gold Plus Negative (Negative)
== END ==
LOC: M LABDRAW1 16:55
DX: M06.041 Rheumatoid arthritis without rheumatoid factor, right hand (principal)
CPT/HCPCS: 36415

== ENCOUNTER → 2018-07-20 | Outpatient (REF) | payer BC ==
[2018-07-20 11:13] LABS: BASO # 0.1 10^3/uL (0.0-0.2); BASO % 0.6 % (0.0-1.0); EOS # 0.2 10^3/uL (0.0-0.50); EOS % 1.7 % (0.0-3.0); HEMATOCRIT 45.4 % (42.0-52.0); HEMOGLOBIN 15.1 g/dl (13.5-17.5); IMMATURE GRANULOCYTE # 0.1 10^3/uL (0-0); IMMATURE GRANULOCYTE % 1.3 % (0-3.0); LYMPH # 1.5 10^3/uL (1.5-4.5); LYMPH % 13.8 % (24.0-44.0); MEAN CORPUSCULAR HEMOGLOBIN 28.4 pg (27.0-33.0); MEAN CORPUSCULAR HGB CONC 33.3 g/dl (32.0-36.5); MEAN CORPUSCULAR VOLUME 85.3 fl (80.0-96.0); MONO # 1.1 10^3/uL (0.0-0.8); MONO % 10.1 % (0.0-5.0); NEUTROPHILS # 7.7 10^3/uL (1.8-7.7); NEUTROPHILS % 72.5 % (36.0-66.0); PLATELET COUNT, AUTOMATED 329 10^3/uL (150-450); RED BLOOD COUNT 5.32 10^6/uL (4.30-6.10); WHITE BLOOD COUNT 10.6 10^3/uL (4.0-10.0)
[2018-07-20 11:43] LABS: ALBUMIN 3.2 GM/DL (3.2-5.2); ALBUMIN/GLOBULIN RATIO 0.89 (1.00-1.93); ALKALINE PHOSPHATASE 85 U/L (45-117); ALT/SGPT 36 U/L (12-78); ANION GAP 10 MEQ/L (8-16); AST/SGOT 18 U/L (7-37); BILIRUBIN,TOTAL 0.6 MG/DL (0.2-1.0); BLOOD UREA NITROGEN 13 MG/DL (7-18); CALCIUM LEVEL 8.3 MG/DL (8.8-10.2); CARBON DIOXIDE LEVEL 27 MEQ/L (21-32); CHLORIDE LEVEL 103 MEQ/L (98-107); CHOLESTEROL LEVEL 115 MG/DL (<200); CHOLESTEROL RISK RATIO 2.948 (<5); CREATININE FOR GFR 0.93 MG/DL (0.70-1.30); GLOMERULAR FILTRATION RATE > 60.0 (>42); GLUCOSE, FASTING 116 MG/DL (70-100); HDL CHOLESTEROL 39 MG/DL (>40); LDL CHOLESTEROL 46 MG/DL (<100); NON-HDL-C 76 MG/DL; POTASSIUM SERUM 4.1 MEQ/L (3.5-5.1); SODIUM LEVEL 140 MEQ/L (136-145); TOTAL PROTEIN 6.8 GM/DL (6.4-8.2); TRIGLYCERIDES LEVEL 150 MG/DL (<150)
== END ==
LOC: M LABDRAW1 10:34
DX: M35.3 Polymyalgia rheumatica (principal)
CPT/HCPCS: 80053

== ENCOUNTER → 2018-08-14 | Outpatient (CLI) | payer BC ==
[~2018-08-14] MED LIST changes: +ATEN50TA2 PO; +ATOR40TA75 PO; +CARV12.5 PO; +ELIQ5TAB PO; +ENAL5TAB PO; +FLEC1TAB PO; +FLEC25TA; +FLEC50HA PO; +FOLI1TAB11 PO; +METH2.5T48 PO; +METRCRM TOP; +PRED10PA2 PO; +PRED5TA PO; +SPIR-10 PO; +TEST200I14 IM; +TEST30SO TD; +VIAG100T PO; +VITMTA PO
[2018-08-14 08:44] LABS: BASO # 0.1 10^3/uL (0.0-0.2); BASO % 0.6 % (0.0-1.0); EOS # 0.1 10^3/uL (0.0-0.50); EOS % 0.6 % (0.0-3.0); HEMATOCRIT 47.7 % (42.0-52.0); HEMOGLOBIN 15.8 g/dl (13.5-17.5); LYMPH # 1.9 10^3/uL (1.5-4.5); LYMPH % 22.7 % (24.0-44.0); MEAN CORPUSCULAR HGB CONC 33.1 g/dl (32.0-36.5); MEAN CORPUSCULAR VOLUME 87.5 fl (80.0-96.0); MONO % 11.7 % (0.0-5.0); NEUTROPHILS # 5.1 10^3/uL (1.8-7.7); NEUTROPHILS % 63.1 % (36.0-66.0); PLATELET COUNT, AUTOMATED 197 10^3/uL (150-450); RED BLOOD COUNT 5.45 10^6/uL (4.30-6.10); WHITE BLOOD COUNT 8.2 10^3/uL (4.0-10.0)
[2018-08-14 09:10] LABS: ALBUMIN 3.6 GM/DL (3.2-5.2); ALT/SGPT 61 U/L (12-78); BILIRUBIN,TOTAL 0.6 MG/DL (0.2-1.0); BLOOD UREA NITROGEN 20 MG/DL (7-18); C REACTIVE PROTEIN QUANTITATIV < 0.30 MG/DL (0.00-0.30); CALCIUM LEVEL 8.5 MG/DL (8.8-10.2); CARBON DIOXIDE LEVEL 29 MEQ/L (21-32); CHLORIDE LEVEL 104 MEQ/L (98-107); CHOLESTEROL LEVEL 103 MG/DL (<200); CHOLESTEROL RISK RATIO 2.239 (<5); CREATININE FOR GFR 0.93 MG/DL (0.70-1.30); GLOMERULAR FILTRATION RATE > 60.0 (>42); GLUCOSE, FASTING 81 MG/DL (70-100); HDL CHOLESTEROL 46 MG/DL (>40); LDL CHOLESTEROL 32 MG/DL (<100); NON-HDL-C 57 MG/DL; POTASSIUM SERUM 4.1 MEQ/L (3.5-5.1); SODIUM LEVEL 140 MEQ/L (136-145); TOTAL PROTEIN 6.5 GM/DL (6.4-8.2); TRIGLYCERIDES LEVEL 125 MG/DL (<150)
== END ==
LOC: M LAB 08:20
PROVIDERS: ATTEND Internal Medicine
DX: Z51.81 Encounter for therapeutic drug level monitoring (principal); Z79.899 Other long term (current) drug therapy

== ENCOUNTER → 2018-09-15 | Outpatient (REF) | payer BC ==
[2018-09-15 13:44] LABS: BASO # 0.1 10^3/uL (0.0-0.2); BASO % 0.9 % (0.0-1.0); EOS # 0.2 10^3/uL (0.0-0.50); HEMATOCRIT 52.1 % (42.0-52.0); HEMOGLOBIN 17.3 g/dl (13.5-17.5); LYMPH # 1.4 10^3/uL (1.5-4.5); LYMPH % 25.6 % (24.0-44.0); MEAN CORPUSCULAR HEMOGLOBIN 30.6 pg (27.0-33.0); MEAN CORPUSCULAR HGB CONC 33.2 g/dl (32.0-36.5); MEAN CORPUSCULAR VOLUME 92.2 fl (80.0-96.0); MONO # 0.6 10^3/uL (0.0-0.8); MONO % 11.5 % (0.0-5.0); NEUTROPHILS # 3.1 10^3/uL (1.8-7.7); NEUTROPHILS % 58.3 % (36.0-66.0); PLATELET COUNT, AUTOMATED 199 10^3/uL (150-450); RED BLOOD COUNT 5.65 10^6/uL (4.30-6.10); WHITE BLOOD COUNT 5.4 10^3/uL (4.0-10.0)
[2018-09-15 13:45] LABS: ALBUMIN 3.7 GM/DL (3.2-5.2); ALT/SGPT 53 U/L (12-78); BILIRUBIN,TOTAL 0.4 MG/DL (0.2-1.0); BLOOD UREA NITROGEN 15 MG/DL (7-18); C REACTIVE PROTEIN QUANTITATIV 2.99 MG/DL (0.00-0.30); CALCIUM LEVEL 8.6 MG/DL (8.8-10.2); CARBON DIOXIDE LEVEL 24 MEQ/L (21-32); CHLORIDE LEVEL 105 MEQ/L (98-107); CREATININE FOR GFR 0.83 MG/DL (0.70-1.30); GLOMERULAR FILTRATION RATE > 60.0 (>42); GLUCOSE, FASTING 139 MG/DL (70-100); SODIUM LEVEL 139 MEQ/L (136-145); TOTAL PROTEIN 6.7 GM/DL (6.4-8.2)
== END ==
LOC: M LABNEURO 09:15
PROVIDERS: ATTEND Internal Medicine
DX: M35.3 Polymyalgia rheumatica (principal)

== ENCOUNTER → 2018-09-15 | Outpatient (REF) | payer BC ==
[2018-09-15 13:37] LABS: BASO # 0.1 10^3/uL (0.0-0.2); BASO % 0.9 % (0.0-1.0); EOS # 0.2 10^3/uL (0.0-0.50); EOS % 3.2 % (0.0-3.0); HEMATOCRIT 52.3 % (42.0-52.0); HEMOGLOBIN 17.4 g/dl (13.5-17.5); LYMPH # 1.4 10^3/uL (1.5-4.5); LYMPH % 26.6 % (24.0-44.0); MEAN CORPUSCULAR HEMOGLOBIN 30.9 pg (27.0-33.0); MEAN CORPUSCULAR HGB CONC 33.3 g/dl (32.0-36.5); MEAN CORPUSCULAR VOLUME 92.7 fl (80.0-96.0); MONO # 0.6 10^3/uL (0.0-0.8); MONO % 11.8 % (0.0-5.0); NEUTROPHILS % 56.9 % (36.0-66.0); PLATELET COUNT, AUTOMATED 193 10^3/uL (150-450); RED BLOOD COUNT 5.64 10^6/uL (4.30-6.10); WHITE BLOOD COUNT 5.3 10^3/uL (4.0-10.0)
[2018-09-15 13:49] LABS: ALBUMIN 3.6 GM/DL (3.2-5.2); PERCENT SATURATION 23.4 % (19.7-50.0)
== END ==
LOC: M LABNEURO 09:19
PROVIDERS: ATTEND Orthopaedic Surgery
DX: M25.551 Pain in right hip (principal); Z01.818 Encounter for other preprocedural examination; M16.11 Unilateral primary osteoarthritis, right hip; D63.8 Anemia in other chronic diseases classified elsewhere

== ENCOUNTER → 2018-12-10 | Outpatient (REF) | payer BC ==
[~2018-12-10] MED LIST changes: +ASPI-1 PO; -ASPI325T PO
[2018-12-10 18:30] LABS: HEMATOCRIT 50.2 % (42.0-52.0)
[2018-12-10 18:36] LABS: PROSTATIC SPECIFIC AG MONITOR 0.77 NG/ML (< 4.00)
== END ==
LOC: M LABNEURO 11:19
PROVIDERS: ATTEND Urology
DX: Z00.00 Encounter for general adult medical examination without abnormal findings (principal)

== ENCOUNTER → 2019-01-13 | Outpatient (REF) | payer BC ==
[2019-01-13 12:13] LABS: BASO % 0.2 % (0.0-1.0); HEMATOCRIT 51.6 % (42.0-52.0); HEMOGLOBIN 17.4 g/dl (13.5-17.5); LYMPH # 0.6 10^3/uL (1.5-4.5); MEAN CORPUSCULAR HEMOGLOBIN 31.3 pg (27.0-33.0); MEAN CORPUSCULAR HGB CONC 33.7 g/dl (32.0-36.5); MEAN CORPUSCULAR VOLUME 92.8 fl (80.0-96.0); MONO # 0.6 10^3/uL (0.0-0.8); MONO % 3.9 % (0.0-5.0); NEUTROPHILS # 12.8 10^3/uL (1.8-7.7); NEUTROPHILS % 91.4 % (36.0-66.0); PLATELET COUNT, AUTOMATED 225 10^3/uL (150-450); RED BLOOD COUNT 5.56 10^6/uL (4.30-6.10)
[2019-01-13 12:48] LABS: ALBUMIN 3.8 GM/DL (3.2-5.2); ALT/SGPT 27 U/L (12-78); BILIRUBIN,TOTAL 0.7 MG/DL (0.2-1.0); BLOOD UREA NITROGEN 22 MG/DL (7-18); C REACTIVE PROTEIN QUANTITATIV < 0.30 MG/DL (0.00-0.30); CALCIUM LEVEL 8.6 MG/DL (8.8-10.2); CARBON DIOXIDE LEVEL 25 MEQ/L (21-32); CHLORIDE LEVEL 105 MEQ/L (98-107); CHOLESTEROL LEVEL 118 MG/DL (<200); CREATININE FOR GFR 0.99 MG/DL (0.70-1.30); GLOMERULAR FILTRATION RATE > 60.0 (>42); GLUCOSE, FASTING 211 MG/DL (70-100); HDL CHOLESTEROL 50 MG/DL (>40); LDL CHOLESTEROL 50 MG/DL (<100); NON-HDL-C 68 MG/DL; SODIUM LEVEL 137 MEQ/L (136-145); TOTAL PROTEIN 7.3 GM/DL (6.4-8.2); TRIGLYCERIDES LEVEL 92 MG/DL (<150)
== END ==
LOC: M LABDRAW1 11:49
PROVIDERS: ATTEND Internal Medicine
DX: Z79.899 Other long term (current) drug therapy (principal)

== ENCOUNTER → 2019-02-09 | Outpatient (CLI) | payer BC ==
[2019-02-09 07:41] LABS: BASO % 0.9 % (0.0-1.0); EOS # 0.3 10^3/uL (0.0-0.50); EOS % 6.1 % (0.0-3.0); HEMATOCRIT 54.2 % (42.0-52.0); HEMOGLOBIN 18.3 g/dl (13.5-17.5); LYMPH # 1.6 10^3/uL (1.5-4.5); LYMPH % 35.2 % (24.0-44.0); MEAN CORPUSCULAR HEMOGLOBIN 31.6 pg (27.0-33.0); MEAN CORPUSCULAR HGB CONC 33.8 g/dl (32.0-36.5); MEAN CORPUSCULAR VOLUME 93.4 fl (80.0-96.0); MONO # 0.7 10^3/uL (0.0-0.8); MONO % 14.8 % (0.0-5.0); NEUTROPHILS % 42.6 % (36.0-66.0); PLATELET COUNT, AUTOMATED 136 10^3/uL (150-450); WHITE BLOOD COUNT 4.6 10^3/uL (4.0-10.0)
[2019-02-10 08:16] LABS: ERYTHROPOIETIN 12.5 mIU/mL (2.6-18.5)
== END ==
LOC: M LAB 07:03
PROVIDERS: ATTEND Internal Medicine
DX: D75.1 Secondary polycythemia (principal); M35.3 Polymyalgia rheumatica

== ENCOUNTER → 2019-02-14 | Outpatient (CLI) | payer BC ==
[2019-02-14 07:27] LABS: BASO # 0.1 10^3/uL (0.0-0.2); EOS # 0.3 10^3/uL (0.0-0.50); EOS % 6.1 % (0.0-3.0); HEMATOCRIT 53.8 % (42.0-52.0); HEMOGLOBIN 18.1 g/dl (13.5-17.5); LYMPH # 1.6 10^3/uL (1.5-4.5); LYMPH % 31.9 % (24.0-44.0); MEAN CORPUSCULAR HEMOGLOBIN 30.8 pg (27.0-33.0); MEAN CORPUSCULAR HGB CONC 33.6 g/dl (32.0-36.5); MEAN CORPUSCULAR VOLUME 91.5 fl (80.0-96.0); MONO # 0.7 10^3/uL (0.0-0.8); NEUTROPHILS # 2.3 10^3/uL (1.8-7.7); NEUTROPHILS % 46.4 % (36.0-66.0); PLATELET COUNT, AUTOMATED 178 10^3/uL (150-450); RED BLOOD COUNT 5.88 10^6/uL (4.30-6.10); WHITE BLOOD COUNT 4.9 10^3/uL (4.0-10.0)
== END ==
LOC: M LAB 07:02
PROVIDERS: ATTEND Internal Medicine
DX: M35.3 Polymyalgia rheumatica (principal)

== ENCOUNTER → 2019-03-07 | Outpatient (CLI) | payer BC ==
[~2019-03-07] MED LIST changes: +ACTE20IN SC; +SILD50TA PO
[2019-03-07 07:22] LABS: BASO # 0.1 10^3/uL (0.0-0.2); BASO % 1.7 % (0.0-1.0); EOS # 0.3 10^3/uL (0.0-0.50); EOS % 5.5 % (0.0-3.0); HEMATOCRIT 55.2 % (42.0-52.0); HEMOGLOBIN 18.7 g/dl (13.5-17.5); LYMPH # 1.7 10^3/uL (1.5-4.5); LYMPH % 35.3 % (24.0-44.0); MEAN CORPUSCULAR HEMOGLOBIN 31.5 pg (27.0-33.0); MEAN CORPUSCULAR HGB CONC 33.9 g/dl (32.0-36.5); MEAN CORPUSCULAR VOLUME 93.1 fl (80.0-96.0); MONO # 0.8 10^3/uL (0.0-0.8); MONO % 16.4 % (0.0-5.0); NEUTROPHILS # 1.9 10^3/uL (1.8-7.7); NEUTROPHILS % 40.7 % (36.0-66.0); PLATELET COUNT, AUTOMATED 129 10^3/uL (150-450); RED BLOOD COUNT 5.93 10^6/uL (4.30-6.10); WHITE BLOOD COUNT 4.7 10^3/uL (4.0-10.0)
== END ==
LOC: M LAB 07:02
PROVIDERS: ATTEND Internal Medicine
DX: M35.3 Polymyalgia rheumatica (principal)

== ENCOUNTER → 2019-03-31 | Outpatient (CLI) | payer BC ==
[2019-03-31 08:04] LABS: BASO # 0.1 10^3/uL (0.0-0.2); BASO % 1.8 % (0.0-1.0); EOS # 0.4 10^3/uL (0.0-0.50); EOS % 7.9 % (0.0-3.0); HEMATOCRIT 54.7 % (42.0-52.0); HEMOGLOBIN 18.6 g/dl (13.5-17.5); LYMPH # 1.5 10^3/uL (1.5-4.5); LYMPH % 33.7 % (24.0-44.0); MEAN CORPUSCULAR VOLUME 91.2 fl (80.0-96.0); MONO # 0.7 10^3/uL (0.0-0.8); NEUTROPHILS # 1.9 10^3/uL (1.8-7.7); NEUTROPHILS % 41.2 % (36.0-66.0); PLATELET COUNT, AUTOMATED 140 10^3/uL (150-450); WHITE BLOOD COUNT 4.5 10^3/uL (4.0-10.0)
== END ==
LOC: M LAB 07:25
PROVIDERS: ATTEND Internal Medicine
DX: M35.3 Polymyalgia rheumatica (principal)

== ENCOUNTER → 2019-04-05 | Outpatient (CLI) | payer BC ==
[~2019-04-05] MED LIST changes: -ACTE20IN SC; -SILD50TA PO
[2019-04-05 14:41] LABS: PROSTATIC SPECIFIC AG MONITOR 0.71 NG/ML (< 4.00)
== END ==
LOC: M LAB 13:26
PROVIDERS: ATTEND Urology
DX: E29.1 Testicular hypofunction (principal)

== ENCOUNTER 2019-04-19 07:11 | Outpatient (CLI) | payer BC ==
[~2019-04-19] VITALS: Ht 177.8 cm; Wt 88.6 kg
[2019-04-19 07:15] VITALS: BP 134/63
[2019-04-19] MEDS ORDERED: ACTE20IN SC (07:40)
[2019-04-19] MEDS ORDERED: FLEC1TAB PO (07:42)
[2019-04-19] MEDS ORDERED: SILD50TA PO (07:43)
[2019-04-19 08:15] VITALS: BP 119/59
== END 2019-04-19 08:15 | disposition home or self-care (01) ==
LOC: M INFU 07:11
PROVIDERS: ATTEND Urology
DX: D69.6 Thrombocytopenia, unspecified (principal)

== ENCOUNTER → 2019-06-10 | Outpatient (CLI) | payer BC ==
[~2019-06-10] MED LIST changes: +ACTE20IN SC; +SILD50TA PO
[2019-06-10 08:26] LABS: BASO # 0.1 10^3/uL (0.0-0.2); BASO % 1.1 % (0.0-1.0); EOS # 0.3 10^3/uL (0.0-0.5); EOS % 6.2 % (0.0-3.0); HEMATOCRIT 53.7 % (42.0-52.0); HEMOGLOBIN 18.4 g/dl (13.5-17.5); LYMPH # 1.5 10^3/uL (1.5-5.0); MEAN CORPUSCULAR HEMOGLOBIN 33.3 pg (27.0-33.0); MEAN CORPUSCULAR HGB CONC 34.3 g/dl (32.0-36.5); MEAN CORPUSCULAR VOLUME 97.1 fl (80.0-96.0); MONO # 0.7 10^3/uL (0.0-0.8); MONO % 14.2 % (0.0-5.0); NEUTROPHILS # 2.1 10^3/uL (1.5-8.5); NEUTROPHILS % 45.1 % (36.0-66.0); PLATELET COUNT, AUTOMATED 128 10^3/uL (150-450); RED BLOOD COUNT 5.53 10^6/uL (4.30-6.10); WHITE BLOOD COUNT 4.7 10^3/uL (4.0-10.0)
[2019-06-10 08:45] LABS: ALT/SGPT 71 U/L (12-78); BILIRUBIN,TOTAL 1.4 MG/DL (0.2-1.0); BLOOD UREA NITROGEN 13 MG/DL (7-18); CALCIUM LEVEL 8.7 MG/DL (8.8-10.2); CARBON DIOXIDE LEVEL 30 MEQ/L (21-32); CHLORIDE LEVEL 107 MEQ/L (98-107); CREATININE FOR GFR 1.11 MG/DL (0.70-1.30); GLOMERULAR FILTRATION RATE > 60.0 (>42); GLUCOSE, FASTING 108 MG/DL (70-100); POTASSIUM SERUM 4.1 MEQ/L (3.5-5.1); SODIUM LEVEL 141 MEQ/L (136-145); TOTAL PROTEIN 6.6 GM/DL (6.4-8.2)
== END ==
LOC: M LAB 07:26
PROVIDERS: ATTEND Internal Medicine Cardiovascular Disease
DX: I48.0 Paroxysmal atrial fibrillation (principal); R94.31 Abnormal electrocardiogram [ECG] [EKG]; I11.9 Hypertensive heart disease without heart failure

== ENCOUNTER → 2019-06-10 | Outpatient (CLI) | payer BC ==
[2019-06-10 08:26] LABS: HEMATOCRIT 52.8 % (42.0-52.0)
[2019-06-10 08:47] LABS: PROSTATIC SPECIFIC AG MONITOR 0.85 NG/ML (< 4.00)
== END ==
LOC: M LAB 07:31
PROVIDERS: ATTEND Nurse Practitioner Family
DX: E29.1 Testicular hypofunction (principal)

== ENCOUNTER → 2019-06-10 | Outpatient (CLI) | payer BC ==
[2019-06-10 08:24] LABS: BASO # 0.1 10^3/uL (0.0-0.2); BASO % 1.3 % (0.0-1.0); EOS # 0.3 10^3/uL (0.0-0.5); EOS % 6.1 % (0.0-3.0); HEMATOCRIT 52.8 % (42.0-52.0); HEMOGLOBIN 18.4 g/dl (13.5-17.5); LYMPH # 1.5 10^3/uL (1.5-5.0); LYMPH % 32.9 % (24.0-44.0); MEAN CORPUSCULAR HEMOGLOBIN 33.9 pg (27.0-33.0); MEAN CORPUSCULAR HGB CONC 34.8 g/dl (32.0-36.5); MEAN CORPUSCULAR VOLUME 97.4 fl (80.0-96.0); MONO # 0.6 10^3/uL (0.0-0.8); MONO % 13.7 % (0.0-5.0); NEUTROPHILS # 2.1 10^3/uL (1.5-8.5); NEUTROPHILS % 45.6 % (36.0-66.0); PLATELET COUNT, AUTOMATED 128 10^3/uL (150-450); RED BLOOD COUNT 5.42 10^6/uL (4.30-6.10); WHITE BLOOD COUNT 4.6 10^3/uL (4.0-10.0)
[2019-06-10 08:46] LABS: ALBUMIN 3.9 GM/DL (3.2-5.2); ALT/SGPT 74 U/L (12-78); BILIRUBIN,TOTAL 1.4 MG/DL (0.2-1.0); BLOOD UREA NITROGEN 13 MG/DL (7-18); C REACTIVE PROTEIN QUANTITATIV < 0.30 MG/DL (0.00-0.30); CALCIUM LEVEL 8.5 MG/DL (8.8-10.2); CARBON DIOXIDE LEVEL 30 MEQ/L (21-32); CHLORIDE LEVEL 106 MEQ/L (98-107); CHOLESTEROL LEVEL 102 MG/DL (<200); CHOLESTEROL RISK RATIO 1.854 (<5); CREATININE FOR GFR 1.09 MG/DL (0.70-1.30); GLOMERULAR FILTRATION RATE > 60.0 (>42); GLUCOSE, FASTING 110 MG/DL (70-100); HDL CHOLESTEROL 55 MG/DL (>40); LDL CHOLESTEROL 27 MG/DL (<100); NON-HDL-C 47 MG/DL; POTASSIUM SERUM 4.1 MEQ/L (3.5-5.1); SODIUM LEVEL 140 MEQ/L (136-145); TOTAL PROTEIN 6.5 GM/DL (6.4-8.2); TRIGLYCERIDES LEVEL 101 MG/DL (<150)
== END ==
LOC: M LAB 07:28
PROVIDERS: ATTEND Internal Medicine
DX: Z79.899 Other long term (current) drug therapy (principal)

== ENCOUNTER → 2019-07-05 | Outpatient (CLI) | payer BC ==
[2019-07-05 15:23] LABS: PROSTATIC SPECIFIC AG MONITOR 0.64 NG/ML (< 4.00)
== END ==
LOC: M LAB 13:42
PROVIDERS: ATTEND Nurse Practitioner Family
DX: E29.1 Testicular hypofunction (principal)

== ENCOUNTER → 2019-09-22 | Outpatient (CLI) | payer BC | LOC: M LAB 07:19 | PROVIDERS: ATTEND Urology | DX: E29.1 Testicular hypofunction (principal) ==

== ENCOUNTER → 2019-09-26 | Outpatient (CLI) | payer BC ==
[2019-09-26 08:34] LABS: PROSTATIC SPECIFIC AG MONITOR 0.7 NG/ML (< 4.00)
== END ==
LOC: M LAB 07:14
PROVIDERS: ATTEND Urology
DX: E29.1 Testicular hypofunction (principal)

== ENCOUNTER → 2019-10-22 | Outpatient (CLI) | payer BC ==
[2019-10-22 08:39] LABS: BASO # 0.1 10^3/uL (0.0-0.2); BASO % 1.3 % (0.0-1.0); EOS # 0.4 10^3/uL (0.0-0.5); EOS % 9.7 % (0.0-3.0); HEMATOCRIT 50.4 % (42.0-52.0); HEMOGLOBIN 17.2 g/dl (13.5-17.5); LYMPH # 1.4 10^3/uL (1.5-5.0); LYMPH % 36.8 % (24.0-44.0); MEAN CORPUSCULAR HEMOGLOBIN 32.5 pg (27.0-33.0); MEAN CORPUSCULAR HGB CONC 34.1 g/dl (32.0-36.5); MEAN CORPUSCULAR VOLUME 95.3 fl (80.0-96.0); MONO # 0.6 10^3/uL (0.0-0.8); MONO % 15.1 % (0.0-5.0); NEUTROPHILS # 1.4 10^3/uL (1.5-8.5); NEUTROPHILS % 36.6 % (36.0-66.0); PLATELET COUNT, AUTOMATED 139 10^3/uL (150-450); RED BLOOD COUNT 5.29 10^6/uL (4.30-6.10); WHITE BLOOD COUNT 3.7 10^3/uL (4.0-10.0)
[2019-10-22 08:56] LABS: ALT/SGPT 63 U/L (12-78); BILIRUBIN,TOTAL 1.2 MG/DL (0.2-1.0); BLOOD UREA NITROGEN 13 MG/DL (7-18); C REACTIVE PROTEIN QUANTITATIV < 0.30 MG/DL (0.00-0.30); CALCIUM LEVEL 8.5 MG/DL (8.8-10.2); CARBON DIOXIDE LEVEL 29 MEQ/L (21-32); CHLORIDE LEVEL 107 MEQ/L (98-107); CREATININE FOR GFR 1.13 MG/DL (0.70-1.30); GLOMERULAR FILTRATION RATE > 60.0 (>42); GLUCOSE, FASTING 109 MG/DL (70-100); POTASSIUM SERUM 4.4 MEQ/L (3.5-5.1); SODIUM LEVEL 140 MEQ/L (136-145); TOTAL PROTEIN 6.6 GM/DL (6.4-8.2)
== END ==
LOC: M LAB 07:36
PROVIDERS: ATTEND Internal Medicine
DX: M35.3 Polymyalgia rheumatica (principal)

== ENCOUNTER → 2019-10-28 | Outpatient (CLI) | payer BC ==
--- NOTE | 2019-10-28 10:10 | REPVR ---
PROCEDURE INFORMATION: Exam: CT Chest Without Contrast Exam date and time: 10/28/2019 9:18 AM Age: 74 years old Clinical indication: Pain; Other: Abnormal finding; Additional info: Non-specific abnormal finding lung field TECHNIQUE: Imaging protocol: Computed tomography of the chest without contrast. Coronal and sagittal reformats were created and reviewed. 3D rendering: MIP and/or 3D reconstructed images were created by the technologist. Radiation optimization: All CT scans at this facility use at least one of these dose optimization techniques: automated exposure control; mA and/or kV adjustment per patient size (includes targeted exams where dose is matched to clinical indication); or iterative reconstruction. COMPARISON: CT ANGIO CHEST 01/18/2018 1:31 PM FINDINGS: Thyroid: Unremarkable as visualized. Lungs: The trachea is unremarkable. Minimal small peripheral bronchial mucous plugging of the lateral right middle lobe. There are a few bilateral upper lung predominant pulmonary bullae redemonstrated. No pulmonary mass, consolidation, or edema. There are multiple unchanged pulmonary micronodules (less than 3 mm) consistent with benign etiologies; for example, right upper lobe series 201 image 24, right middle lobe image 58, right lower lobe image 79, and left upper lobe image 51. Pleural space: No pleural effusion. Unchanged small benign-appearing left posterior costal pleural calcification. No pneumothorax. Heart: Aortic valve calcifications are present consistent with aortic valve sclerosis. Mitral annular calcifications are present. Heavy coronary arterial atherosclerotic calcification. Heart size is within normal limits. No pericardial effusion. Mediastinum: The esophagus is unremarkable. No mediastinal mass. Pulmonary arteries: The main pulmonary arterial trunk is not enlarged. Aorta: Severe aortic atherosclerosis. Unchanged ascending aortic fusiform dilatation measuring 4.3 cm in diameter. Great vessels off aortic arch: Atherosclerotic calcifications of the aortic arch great vessels and their branches. Lymph nodes: No enlarged lymph nodes. Bones/joints: Multilevel degenerative spine disease. T12 vertebral body intraosseous hemangioma redemonstrated. Incompletely imaged fusion at the C6-C7 intervertebral disc space. Soft tissues: Unremarkable. Other findings: Upper abdominal atherosclerotic calcifications. IMPRESSION: 1. Minimal right middle lobe small bronchial mucous plugging. 2. Unchanged ascending aortic fusiform dilatation measuring 4.3 cm in diameter. 3. Aortic valve sclerosis. 4. Atherosclerosis. Coronary artery disease. Electronically signed by: Lennox Hilliard On 10/28/2019 10:09:53 AM
== END ==
LOC: M RAD 09:05
PROVIDERS: ATTEND Physician Assistant
DX: R91.8 Other nonspecific abnormal finding of lung field (principal)

== ENCOUNTER → 2019-12-27 | Outpatient (CLI) | payer BC ==
[~2019-12-27] MED LIST changes: +CONRAY-43 43% 50ML VIAL (Q9960) As Ordered ONE; +LIDOCAINE 1% MDV 20ML VIAL As Ordered ONE; +TRIAMCINOLONE ACETONIDE SUSP 40 MG/ML VIAL (J3301) As Ordered ONE
--- NOTE | 2019-12-27 16:39 | REP ---
LEFT SHOULDER INJECTION The procedure was performed under the direct supervision of Dr. May. The benefits and risks including but not limited to pain infection bleeding and anaphylaxis were explained to the patient and informed consent was obtained. The left glenohumeral joint space was localized using fluoroscopic guidance. The skin was prepped and draped in a sterile fashion. 1% lidocaine was used as a local anesthetic. Using fluoroscopic guidance a 22-gauge spinal needle was inserted and advanced into the joint. 0.5 ml of Conray 43 was injected to verify placement. 6 ml of a solution containing 5 ml of 1% lidocaine and 1 ml of Kenalog 40 mg injected. The needle was then removed. The patient tolerated the procedure well and there were no immediate complications. Less than 6 seconds of fluoroscopy time was utilized for this procedure. Electronically Signed by SYDNIE Mccormack 12/27/2019 04:30 P Electronically Signed by Billy May MD 12/27/2019 04:31 P
== END ==
LOC: M RADPRO 13:40
PROVIDERS: ATTEND Orthopaedic Surgery
DX: M19.012 Primary osteoarthritis, left shoulder (principal)
CPT/HCPCS: 20610; 77002; J3301; Q9960

== ENCOUNTER → 2020-03-15 | Outpatient (CLI) | payer BC ==
[~2020-03-15] MED LIST changes: -CONRAY-43 43% 50ML VIAL (Q9960) As Ordered ONE; +ENAL5TA PO; -ENAL5TAB PO; -LIDOCAINE 1% MDV 20ML VIAL As Ordered ONE; -TRIAMCINOLONE ACETONIDE SUSP 40 MG/ML VIAL (J3301) As Ordered ONE
[2020-03-15 09:36] LABS: PROSTATIC SPECIFIC AG MONITOR 0.64 NG/ML (< 4.00)
== END ==
LOC: M LAB 08:19
PROVIDERS: ATTEND Urology
DX: R79.89 Other specified abnormal findings of blood chemistry (principal)

== ENCOUNTER → 2020-03-15 | Outpatient (CLI) | payer BC ==
[2020-03-15 09:08] LABS: BASO # 0.1 10^3/uL (0.0-0.2); BASO % 1.7 % (0.0-1.0); EOS # 0.2 10^3/uL (0.0-0.5); EOS % 5.2 % (0.0-3.0); HEMATOCRIT 48.1 % (42.0-52.0); HEMOGLOBIN 16.1 g/dl (13.5-17.5); LYMPH # 1.4 10^3/uL (1.5-5.0); LYMPH % 35.7 % (24.0-44.0); MEAN CORPUSCULAR HEMOGLOBIN 32.3 pg (27.0-33.0); MEAN CORPUSCULAR HGB CONC 33.5 g/dl (32.0-36.5); MEAN CORPUSCULAR VOLUME 96.4 fl (80.0-96.0); MONO # 0.5 10^3/uL (0.0-0.8); MONO % 12.9 % (0.0-5.0); NEUTROPHILS # 1.8 10^3/uL (1.5-8.5); PLATELET COUNT, AUTOMATED 119 10^3/uL (150-450); RED BLOOD COUNT 4.99 10^6/uL (4.30-6.10)
[2020-03-15 09:34] LABS: ALBUMIN 3.8 GM/DL (3.2-5.2); ALT/SGPT 63 U/L (12-78); BILIRUBIN,TOTAL 1.1 MG/DL (0.2-1.0); BLOOD UREA NITROGEN 12 MG/DL (7-18); C REACTIVE PROTEIN QUANTITATIV < 0.30 MG/DL (0.00-0.30); CALCIUM LEVEL 9.1 MG/DL (8.8-10.2); CARBON DIOXIDE LEVEL 31 MEQ/L (21-32); CHLORIDE LEVEL 105 MEQ/L (98-107); CREATININE FOR GFR 1.14 MG/DL (0.70-1.30); GLOMERULAR FILTRATION RATE > 60.0 (>42); GLUCOSE, FASTING 136 MG/DL (70-100); POTASSIUM SERUM 4.1 MEQ/L (3.5-5.1); SODIUM LEVEL 140 MEQ/L (136-145); TOTAL PROTEIN 6.4 GM/DL (6.4-8.2)
== END ==
LOC: M LAB 08:15
PROVIDERS: ATTEND Internal Medicine
DX: M35.3 Polymyalgia rheumatica (principal)

== ENCOUNTER → 2020-08-06 | Outpatient (CLI) | payer BC ==
[2020-08-06 17:25] LABS: PROSTATIC SPECIFIC AG MONITOR 0.78 NG/ML (< 4.00)
== END ==
LOC: M LAB 14:43
PROVIDERS: ATTEND Urology
DX: R79.89 Other specified abnormal findings of blood chemistry (principal)

== ENCOUNTER → 2020-08-06 | Outpatient (CLI) | payer BC ==
[2020-08-06 16:00] LABS: BASO % 0.7 % (0.0-1.0); EOS # 0.2 10^3/uL (0.0-0.5); EOS % 4.4 % (0.0-3.0); HEMATOCRIT 52.2 % (42.0-52.0); HEMOGLOBIN 16.6 g/dl (13.5-17.5); LYMPH # 1.6 10^3/uL (1.5-5.0); LYMPH % 29.4 % (24.0-44.0); MEAN CORPUSCULAR HEMOGLOBIN 30.8 pg (27.0-33.0); MEAN CORPUSCULAR HGB CONC 31.8 g/dl (32.0-36.5); MEAN CORPUSCULAR VOLUME 96.8 fl (80.0-96.0); MONO # 0.7 10^3/uL (0.0-0.8); MONO % 11.9 % (0.0-5.0); NEUTROPHILS # 2.9 10^3/uL (1.5-8.5); PLATELET COUNT, AUTOMATED 132 10^3/uL (150-450); RED BLOOD COUNT 5.39 10^6/uL (4.30-6.10); WHITE BLOOD COUNT 5.4 10^3/uL (4.0-10.0)
[2020-08-06 17:11] LABS: BLOOD UREA NITROGEN 17 MG/DL (7-18); CALCIUM LEVEL 8.8 MG/DL (8.8-10.2); CARBON DIOXIDE LEVEL 28 MEQ/L (21-32); CHLORIDE LEVEL 107 MEQ/L (98-107); CREATININE FOR GFR 1.14 MG/DL (0.70-1.30); GLOMERULAR FILTRATION RATE > 60.0 (>42); GLUCOSE, FASTING 104 MG/DL (70-100); POTASSIUM SERUM 4.3 MEQ/L (3.5-5.1); SODIUM LEVEL 141 MEQ/L (136-145)
[2020-08-06 17:12] LABS: ALBUMIN 4.1 GM/DL (3.2-5.2); ALT/SGPT 67 U/L (12-78); BILIRUBIN,TOTAL 1.1 MG/DL (0.2-1.0); CHOLESTEROL LEVEL 131 MG/DL (<200); HDL CHOLESTEROL 50 MG/DL (>40); LDL CHOLESTEROL 31 MG/DL (<100); NON-HDL-C 81 MG/DL; TOTAL PROTEIN 6.9 GM/DL (6.4-8.2); TRIGLYCERIDES LEVEL 249 MG/DL (<150)
== END ==
LOC: M LAB 14:37
PROVIDERS: ATTEND Internal Medicine
DX: M35.3 Polymyalgia rheumatica (principal)

== ENCOUNTER → 2021-01-17 | Outpatient (CLI) | payer BC ==
[2021-01-17 10:29] LABS: BASO # 0.1 10^3/uL (0.0-0.2); BASO % 1.4 % (0.0-1.0); EOS # 0.2 10^3/uL (0.0-0.5); EOS % 4.7 % (0.0-3.0); HEMOGLOBIN 14.9 g/dl (13.5-17.5); LYMPH # 1.2 10^3/uL (1.5-5.0); LYMPH % 32.4 % (24.0-44.0); MEAN CORPUSCULAR HEMOGLOBIN 31.8 pg (27.0-33.0); MEAN CORPUSCULAR HGB CONC 33.9 g/dl (32.0-36.5); MONO # 0.6 10^3/uL (0.0-0.8); MONO % 15.9 % (2.0-8.0); NEUTROPHILS # 1.6 10^3/uL (1.5-8.5); NEUTROPHILS % 45.1 % (36.0-66.0); PLATELET COUNT, AUTOMATED 151 10^3/uL (150-450); RED BLOOD COUNT 4.68 10^6/uL (4.30-6.10); WHITE BLOOD COUNT 3.6 10^3/uL (4.0-10.0)
[2021-01-17 11:09] LABS: ALBUMIN 3.8 GM/DL (3.2-5.2); ALT/SGPT 37 U/L (12-78); BLOOD UREA NITROGEN 14 MG/DL (7-18); CALCIUM LEVEL 8.9 MG/DL (8.8-10.2); CARBON DIOXIDE LEVEL 25 MEQ/L (21-32); CHLORIDE LEVEL 108 MEQ/L (98-107); CREATININE FOR GFR 0.96 MG/DL (0.70-1.30); GLOMERULAR FILTRATION RATE > 60.0 (>42); GLUCOSE, FASTING 108 MG/DL (70-100); SODIUM LEVEL 139 MEQ/L (136-145); TOTAL PROTEIN 6.2 GM/DL (6.4-8.2)
== END ==
LOC: M PLALAB 08:41
PROVIDERS: ATTEND Internal Medicine
DX: M35.3 Polymyalgia rheumatica (principal)

== ENCOUNTER 2022-01-29 13:37 | Emergency (ER) | payer BC ==
[~2022-01-29] VITALS: Ht 182.9 cm; Wt 94.9 kg
[2022-01-29 14:12] LABS: BASO # 0.1 10^3/uL (0.0-0.2); EOS # 0.2 10^3/uL (0.0-0.5); EOS % 3.8 % (0.0-3.0); HEMATOCRIT 48.9 % (42.0-52.0); HEMOGLOBIN 16.8 g/dl (13.5-17.5); LYMPH # 1.6 10^3/uL (1.5-5.0); LYMPH % 29.5 % (24.0-44.0); MEAN CORPUSCULAR HEMOGLOBIN 31.5 pg (27.0-33.0); MEAN CORPUSCULAR HGB CONC 34.4 g/dl (32.0-36.5); MEAN CORPUSCULAR VOLUME 91.7 fl (80.0-96.0); MONO # 0.8 10^3/uL (0.0-0.8); MONO % 15.4 % (2.0-8.0); NEUTROPHILS # 2.6 10^3/uL (1.5-8.5); NEUTROPHILS % 50.1 % (36.0-66.0); PLATELET COUNT, AUTOMATED 122 10^3/uL (150-450); RED BLOOD COUNT 5.33 10^6/uL (4.30-6.10); WHITE BLOOD COUNT 5.3 10^3/uL (4.0-10.0)
[2022-01-29 14:20] LABS: INR 1.03; PROTHROMBIN TIME 13.9 SECONDS (12.7-14.5)
[2022-01-29 14:21] LABS: PARTIAL THROMBOPLASTIN TIME 35.1 SECONDS (25.9-37.0)
[2022-01-29 14:31] LABS: CK-MB VALUE MASS 4.9 NG/ML (<3.6); MB/CK RELATIVE INDEX 2.47 (< OR =4)
[2022-01-29 14:33] LABS: ALBUMIN 4.2 GM/DL (3.2-5.2); ALT/SGPT 109 U/L (12-78); BILIRUBIN,DIRECT 0.5 MG/DL (0.0-0.2); BILIRUBIN,TOTAL 1.6 MG/DL (0.2-1.0); BLOOD UREA NITROGEN 11 MG/DL (7-18); CALCIUM LEVEL 9.5 MG/DL (8.8-10.2); CARBON DIOXIDE LEVEL 27 MEQ/L (21-32); CHLORIDE LEVEL 108 MEQ/L (98-107); CREATININE FOR GFR 1.04 MG/DL (0.70-1.30); GLOMERULAR FILTRATION RATE > 60.0 (>42); GLUCOSE, FASTING 108 MG/DL (70-100); NT-PRO BNP 95 PG/ML (<450); POTASSIUM SERUM 4.1 MEQ/L (3.5-5.1); SODIUM LEVEL 141 MEQ/L (136-145); TOTAL PROTEIN 6.9 GM/DL (6.4-8.2)
[2022-01-29 15:35] LABS: CK-MB VALUE MASS 4.7 NG/ML (<3.6); MB/CK RELATIVE INDEX 2.66 (< OR =4)
[2022-01-29 16:26] LABS: RSV AMPLIFICATION NEGATIVE (NEGATIVE)
[2022-01-29] MEDS ORDERED: ATORVASTATIN 20 MG TAB PO ONE (17:35)
[2022-01-29] MEDS ORDERED: FLECAINIDE 50MG TABLET PO SCH (21:00)
[2022-01-29] MEDS ORDERED: PILL CUTTER 1 EACH XX ONE (21:04)
[2022-01-30 05:15] VITALS: BP 168/84
== END 2022-01-30 05:31 | disposition short-term general hospital (02) ==
LOC: M ED 13:37
DX: I35.0 Nonrheumatic aortic (valve) stenosis (principal); I50.9 Heart failure, unspecified; K21.9 Gastro-esophageal reflux disease without esophagitis; N40.0 Benign prostatic hyperplasia without lower urinary tract symptoms; Z87.891 Personal history of nicotine dependence; Z88.8 Allergy status to other drugs, medicaments and biological substances; Z79.899 Other long term (current) drug therapy; Z79.01 Long term (current) use of anticoagulants

== ENCOUNTER → 2022-02-13 | Outpatient (CLI) | payer BC ==
[2022-02-13 11:11] LABS: ALBUMIN 4.1 GM/DL (3.2-5.2); BILIRUBIN,DIRECT 0.4 MG/DL (0.0-0.2); BILIRUBIN,TOTAL 1.4 MG/DL (0.2-1.0); TOTAL PROTEIN 6.7 GM/DL (6.4-8.2)
== END ==
LOC: M LAB 09:33
PROVIDERS: ATTEND Internal Medicine
DX: Z79.899 Other long term (current) drug therapy (principal)

== ENCOUNTER 2022-03-04 12:32 | Day surgery (SDC) | payer BC ==
[~2022-03-04] VITALS: Ht 180.3 cm; Wt 90.3 kg
[2022-03-04] MEDS ORDERED: ceFAZolin SOD 2 GM in IV 1 EA IV ONE (12:55)
[2022-03-04] MEDS ORDERED: PANT40TA29 PO (12:57)
[2022-03-04] MEDS ORDERED: CLOP75TA2 PO (12:57)
[2022-03-04] MEDS ORDERED: LIDOCAINE 2% INJ 100 MG/5 ML SYRINGE As Ordered ONE (13:17)
[2022-03-04] MEDS ORDERED: propofoL 200 MG/20 ML VIAL As Ordered ONE (13:17)
[2022-03-04] MEDS ORDERED: fentaNYL 100 MCG/2 ML INJECTION As Ordered ONE (13:17)
[2022-03-04] MEDS ORDERED: MIDAZOLAM INJ 2MG/2ML VIAL (J2250 PER 1MG) As Ordered ONE (13:17)
[2022-03-04] MEDS ORDERED: LIDOCAINE 1% SDV 30ML VIAL As Ordered ONE (13:18)
[2022-03-04] MEDS ORDERED: AMIODARONE 150MG/3ML INJ (J0282) As Ordered ONE (13:19)
[2022-03-04] MEDS ORDERED: ISOVUE-300 61% 50ML VIAL As Ordered ONE (13:19)
[2022-03-04] MEDS ORDERED: ACETAMINOPHEN TAB 650MG DOSE (2X325MG) PO PRN (15:15)
[2022-03-04] MEDS ORDERED: traMADol 50 MG TAB PO PRN (15:15)
[2022-03-04 15:42] VITALS: BP 135/61
[2022-03-04] MEDS ORDERED: PILL CUTTER 1 EACH XX PRN (15:50)
[2022-03-04 16:30] VITALS: BP 133/67
[2022-03-04] MEDS: FLECAINIDE 50MG TABLET PO SCH (16:43)
[2022-03-04 17:00] VITALS: BP 142/68
[2022-03-04 18:00] VITALS: BP 126/63
[2022-03-04 19:00] VITALS: BP 110/60
[2022-03-04 20:00] VITALS: BP_SYST 129; BP_SYST 130; BP_DIAS 66
[2022-03-04] MEDS: atenoloL 25 MG TAB PO SCH (20:00)
[2022-03-04] MEDS ORDERED: ATORVASTATIN 20 MG TAB PO SCH (21:00)
[2022-03-04] MEDS: ceFAZolin SOD 1 GM in D5W MINI-BAG PLUS 50 ML IV SCH (22:27)
[2022-03-05] VITALS: BP 124/62
[2022-03-05] MEDS: FLECAINIDE 50MG TABLET PO SCH ×2 (02:49→14:19)
[2022-03-05 04:00] VITALS: BP 114/70
[2022-03-05] MEDS: ceFAZolin SOD 1 GM in D5W MINI-BAG PLUS 50 ML IV SCH ×2 (05:18→14:19)
[2022-03-05 08:00] VITALS: BP 143/68
[2022-03-05 08:14] VITALS: BP 118/63
[2022-03-05] MEDS: atenoloL 25 MG TAB PO SCH (08:14)
[2022-03-05] MEDS ORDERED: SPIRONOLACTONE 12.5MG PER 1/2 TABLET PO SCH (09:00)
[2022-03-05] MEDS ORDERED: CLOPIDOGREL 75 MG TAB PO SCH (09:00)
[2022-03-05] MEDS ORDERED: OMEPRAZOLE 20MG CAP PO SCH (09:00)
[2022-03-05 12:00] VITALS: BP 132/68
[2022-03-05 16:02] VITALS: BP 128/66
[2022-03-05] MEDS ORDERED: FLEC25TA PO (17:15)
== END 2022-03-05 17:56 | disposition home or self-care (01) ==
LOC: M SDC 12:32 → M PCU 15:41 → M SDC 03-05 17:56
PROVIDERS: ATTEND Internal Medicine Cardiovascular Disease
DX: I48.0 Paroxysmal atrial fibrillation (principal); I44.2 Atrioventricular block, complete; I25.10 Atherosclerotic heart disease of native coronary artery without angina pectoris; I11.0 Hypertensive heart disease with heart failure; I50.30 Unspecified diastolic (congestive) heart failure; E78.5 Hyperlipidemia, unspecified; K76.0 Fatty (change of) liver, not elsewhere classified; Z79.01 Long term (current) use of anticoagulants; Z79.899 Other long term (current) drug therapy; M35.3 Polymyalgia rheumatica; I71.2 Thoracic aortic aneurysm, without rupture; I35.0 Nonrheumatic aortic (valve) stenosis; Z88.8 Allergy status to other drugs, medicaments and biological substances
CPT/HCPCS: 33208; 71045; 71046; 76000; 87426; 93005; 96365; 96366; C1785; C1898; J0690; J2250; J3010

== ENCOUNTER → 2023-03-05 | Outpatient (CLI) | payer BC ==
[~2023-03-05] MED LIST changes: +CLOP75TA2 PO; +ENAL1TAB48 PO; -ENAL5TA PO; +FLEC25TA PO; +PANT40TA29 PO
== END ==
LOC: M RAD 11:11
PROVIDERS: ATTEND Internal Medicine Cardiovascular Disease
DX: R91.8 Other nonspecific abnormal finding of lung field (principal)

== ENCOUNTER → 2023-12-03 | Outpatient (CLI) | payer BC ==
[2023-12-03 10:29] LABS: HEMATOCRIT 50.2 % (42.0-52.0); HEMOGLOBIN 16.6 g/dl (13.5-17.5); MEAN CORPUSCULAR HEMOGLOBIN 30.1 pg (27.0-33.0); MEAN CORPUSCULAR HGB CONC 33.1 g/dl (32.0-36.5); MEAN CORPUSCULAR VOLUME 91.1 fl (80.0-96.0); PLATELET COUNT, AUTOMATED 138 10^3/uL (150-450); RED BLOOD COUNT 5.51 10^6/uL (4.30-6.10); WHITE BLOOD COUNT 5.1 10^3/uL (4.0-10.0)
[2023-12-03 11:00] LABS: PROSTATIC SPECIFIC AG MONITOR 1.21 NG/ML (< 4.00)
== END ==
LOC: M LAB 09:10
PROVIDERS: ATTEND Urology
DX: R79.89 Other specified abnormal findings of blood chemistry (principal)

== ENCOUNTER → 2023-12-03 | Outpatient (CLI) | payer BC ==
[2023-12-03 10:30] LABS: HEMATOCRIT 49.8 % (42.0-52.0); HEMOGLOBIN 16.6 g/dl (13.5-17.5); MEAN CORPUSCULAR HEMOGLOBIN 30.1 pg (27.0-33.0); MEAN CORPUSCULAR HGB CONC 33.3 g/dl (32.0-36.5); MEAN CORPUSCULAR VOLUME 90.2 fl (80.0-96.0); PLATELET COUNT, AUTOMATED 147 10^3/uL (150-450); RED BLOOD COUNT 5.52 10^6/uL (4.30-6.10); WHITE BLOOD COUNT 4.9 10^3/uL (4.0-10.0)
[2023-12-03 10:40] LABS: ERYTHROCYTE SEDIMENTATION RATE 4 mm/hr (0-20)
[2023-12-03 11:00] LABS: C REACTIVE PROTEIN QUANTITATIV < 0.40 MG/DL (<1.0)
[2023-12-03 11:01] LABS: ALBUMIN 3.6 G/DL (3.2-5.2); ALKALINE PHOSPHATASE 64 U/L (46-116); ALT/SGPT 94 U/L (7.0-40); AST/SGOT 50 U/L (<34); BILIRUBIN,TOTAL 1.5 MG/DL (0.3-1.2); BLOOD UREA NITROGEN 20 MG/DL (9-23); CALCIUM LEVEL 8.3 MG/DL (8.3-10.6); CARBON DIOXIDE LEVEL 29 MMOL/L (20-31); CHLORIDE LEVEL 104 MMOL/L (98-107); CHOLESTEROL LEVEL 101 MG/DL (<200); CHOLESTEROL RISK RATIO 2.47 (<5); CREATININE FOR GFR 1.13 MG/DL (0.70-1.30); GLOMERULAR FILTRATION RATE > 60.0 (>42); GLUCOSE, FASTING 116 MG/DL (74-106); HDL CHOLESTEROL 40.8 MG/DL (>40); LDL CHOLESTEROL 10.2 MG/DL (<100); NON-HDL-C 60.2 MG/DL; POTASSIUM SERUM 4.5 MMOL/L (3.5-5.1); SODIUM LEVEL 140 MMOL/L (136-145); TOTAL PROTEIN 6.1 G/DL (5.7-8.2); TRIGLYCERIDES LEVEL 250 MG/DL (<150)
== END ==
LOC: M LAB 09:14
PROVIDERS: ATTEND Internal Medicine
DX: Z79.899 Other long term (current) drug therapy (principal)

== ENCOUNTER → 2023-12-17 | Outpatient (CLI) | payer BC ==
[2023-12-17 08:51] LABS: ALBUMIN 3.8 G/DL (3.2-5.2); BILIRUBIN,DIRECT 0.5 MG/DL (<0.4); BILIRUBIN,TOTAL 1.2 MG/DL (0.3-1.2); TOTAL PROTEIN 6.4 G/DL (5.7-8.2)
== END ==
LOC: M LAB 07:45
PROVIDERS: ATTEND Internal Medicine
DX: M31.6 Other giant cell arteritis (principal)

== ENCOUNTER → 2024-02-01 | Outpatient (CLI) | payer BC | LOC: M RAD 09:39 | PROVIDERS: ATTEND Allergy & Immunology Allergy | DX: J32.9 Chronic sinusitis, unspecified (principal) ==

== ENCOUNTER → 2024-03-21 | Outpatient (CLI) | payer BC ==
[2024-03-21 08:11] LABS: HEMATOCRIT 42.6 % (42.0-52.0); HEMOGLOBIN 14.6 g/dl (13.5-17.5); MEAN CORPUSCULAR HEMOGLOBIN 31.8 pg (27.0-33.0); MEAN CORPUSCULAR HGB CONC 34.3 g/dl (32.0-36.5); MEAN CORPUSCULAR VOLUME 92.8 fl (80.0-96.0); PLATELET COUNT, AUTOMATED 143 10^3/uL (150-450); RED BLOOD COUNT 4.59 10^6/uL (4.30-6.10); WHITE BLOOD COUNT 5.8 10^3/uL (4.0-10.0)
[2024-03-21 08:35] LABS: ERYTHROCYTE SEDIMENTATION RATE 22 mm/hr (0-20)
[2024-03-21 08:37] LABS: ALBUMIN 3.4 G/DL (3.2-5.2); ALKALINE PHOSPHATASE 77 U/L (46-116); ALT/SGPT 32 U/L (7.0-40); AST/SGOT 21 U/L (<34); BILIRUBIN,TOTAL 0.7 MG/DL (0.3-1.2); BLOOD UREA NITROGEN 14 MG/DL (9-23); CALCIUM LEVEL 8.1 MG/DL (8.3-10.6); CARBON DIOXIDE LEVEL 25 MMOL/L (20-31); CHLORIDE LEVEL 106 MMOL/L (98-107); CREATININE FOR GFR 0.84 MG/DL (0.70-1.30); GLOMERULAR FILTRATION RATE > 60.0 (>42); GLUCOSE, FASTING 158 MG/DL (74-106); POTASSIUM SERUM 3.9 MMOL/L (3.5-5.1); SODIUM LEVEL 138 MMOL/L (136-145); TOTAL PROTEIN 6.2 G/DL (5.7-8.2)
== END ==
LOC: M LAB 07:06
PROVIDERS: ATTEND Internal Medicine
DX: Z79.899 Other long term (current) drug therapy (principal)

== ENCOUNTER → 2024-04-27 | Outpatient (CLI) | payer BC ==
[~2024-04-27] MED LIST changes: +ISOVUE-370 76% 100ML VIAL ONE
== END ==
LOC: M PLAIMG 08:08
PROVIDERS: ATTEND Pain Medicine Interventional Pain Medicine
DX: M96.1 Postlaminectomy syndrome, not elsewhere classified (principal)

== ENCOUNTER → 2024-10-11 | Outpatient (REF) | payer BC ==
[~2024-10-11] MED LIST changes: -ISOVUE-370 76% 100ML VIAL ONE
== END ==
LOC: M SFHCDERM 08:25
PROVIDERS: ATTEND Physician Assistant
DX: C44.602 Unspecified malignant neoplasm of skin of right upper limb, including shoulder (principal)

== ENCOUNTER → 2024-10-14 | Outpatient (CLI) | payer BC | LOC: M RAD 09:59 | PROVIDERS: ATTEND Physician Assistant | DX: I70.203 Unspecified atherosclerosis of native arteries of extremities, bilateral legs (principal) ==

== ENCOUNTER → 2024-11-15 | Outpatient (REF) | payer BC | LOC: M SFHCDERM 08:35 | PROVIDERS: ATTEND Physician Assistant | DX: C44.612 Basal cell carcinoma of skin of right upper limb, including shoulder (principal) ==

== ENCOUNTER → 2024-11-18 | Outpatient (CLI) | payer BC ==
[2024-11-18 11:46] LABS: PROSTATIC SPECIFIC AG MONITOR 0.94 NG/ML (< 4.00)
== END ==
LOC: M LAB 10:52
PROVIDERS: ATTEND Nurse Practitioner Family
DX: N52.01 Erectile dysfunction due to arterial insufficiency (principal); R79.89 Other specified abnormal findings of blood chemistry

== ENCOUNTER → 2024-12-06 | Outpatient (CLI) | payer BC | LOC: M WUC 14:59 | PROVIDERS: ATTEND Physician Assistant | DX: J20.8 Acute bronchitis due to other specified organisms (principal) ==

== ENCOUNTER → 2024-12-16 | Outpatient (CLI) | payer BC, MEDICARE | LOC: M PLAIMG 12:41 | PROVIDERS: ATTEND Internal Medicine Cardiovascular Disease | DX: I71.21 Aneurysm of the ascending aorta, without rupture (principal) ==

== ENCOUNTER → 2025-08-04 | Outpatient (CLI) | payer BC ==
[2025-08-04 08:03] LABS: BASO # 0.1 10^3/uL (0.0-0.2); BASO % 1.1 % (0.0-1.0); EOS # 0.3 10^3/uL (0.0-0.5); EOS % 4.3 % (0.0-3.0); LYMPH # 1.7 10^3/uL (1.5-5.0); LYMPH % 22.6 % (24.0-44.0); MONO # 0.8 10^3/uL (0.0-0.8); MONO % 10.5 % (2.0-8.0); NEUTROPHILS # 4.7 10^3/uL (1.5-8.5); NEUTROPHILS % 61.1 % (36.0-66.0); PLATELET COUNT, AUTOMATED 162 10^3/uL (150-450)
[2025-08-04 08:40] LABS: CALCIUM LEVEL 8.7 MG/DL (8.3-10.6); CARBON DIOXIDE LEVEL 30.0 MMOL/L (20-31); CHLORIDE LEVEL 101.0 MMOL/L (98-107); CHOLESTEROL LEVEL 92.0 MG/DL (<200); CHOLESTEROL RISK RATIO 2.74 (<5); CREATININE FOR GFR 1.19 MG/DL (0.70-1.30); GLOMERULAR FILTRATION RATE 62.5 (>42); LDL CHOLESTEROL 31.7 MG/DL (<100); MAGNESIUM LEVEL 1.9 MG/DL (1.8-2.4); NON-HDL-C 58.5 MG/DL; POTASSIUM SERUM 4.5 MMOL/L (3.5-5.1); SODIUM LEVEL 137.0 MMOL/L (136-145); TRIGLYCERIDES LEVEL 134.0 MG/DL (<150)
[2025-08-04 08:41] LABS: FREE T4 0.91 NG/DL (0.89-1.76)
== END ==
LOC: M LAB 07:30
PROVIDERS: ATTEND Nurse Practitioner Family
DX: I50.32 Chronic diastolic (congestive) heart failure (principal); I48.0 Paroxysmal atrial fibrillation; I25.10 Atherosclerotic heart disease of native coronary artery without angina pectoris